=== PATIENT | female | born 1975 | race Caucasian/White ===

== ENCOUNTER 2017-03-12 15:34 | Outpatient (POV) | payer MEDICAID, SELFPAY | END 2017-03-12 16:24 | disposition home or self-care (01) | PROVIDERS: Visit Provider Podiatrist | DX: S93.401A Sprain of unspecified ligament of right ankle, initial encounter (principal); M20.42 Other hammer toe(s) (acquired), left foot; M20.41 Other hammer toe(s) (acquired), right foot | CPT/HCPCS: 99203; 73610; 73630 ==

== ENCOUNTER 2017-04-11 22:54 | Emergency (ER) | payer MEDICAID, SELFPAY ==
[2017-04-11 22:59] VITALS: BP 136/78; PULSE 96; RESP 20; TEMP 37.7; O2SAT 92; BMI 31.0
--- NOTE | 2017-04-11 23:11 | XR_ITS ---
XR chest portable HISTORY: ITS.REASON: COUGH ORDERING PHYSICIAN: Adriel Sargent MD PATIENT AGE: 42 years COMPARISON: 12/31/2016 FINDINGS: Prior median sternotomy with CABG and coronary artery stent placement. Normal heart size. No evidence of CHF.. The lungs are clear without infiltrates, suspicious nodules, or pleural effusions. No acute bony abnormalities. IMPRESSION: Prior CABG, no change with no acute finding
[2017-04-11 23:24] LABS: Basophils % 0.2 % (0.1-2.0); Eosinophils # 0.1 K/mm3 (0.0-0.4); Eosinophils % 0.5 % (0.1-12.0); Hematocrit 38.8 % (37.0-47.0); Hemoglobin 12.8 g/dL (12.2-16.2); Lymphocytes % 8.5 K/mm3 (10-50); Mean Corpuscular Hemoglobin 32.1 pg (27.0-31.2); Mean Corpuscular Volume 97.1 fl (81-99); Mean Platelet Volume 8.4 fl (7.4-10.4); Monocytes # 0.5 K/mm3 (0.1-1.0); Neutrophils # 10.6 K/mm3 (1.8-7.8); Neutrophils % 86.7 % (37.0-80.0); Platelet Count 322 K/mm3 (142-424); Red Cell Distribution Width 13.7 % (11.5-17.5); White Blood Count 12.2 K/mm3 (4.8-10.8)
[2017-04-11 23:26] LABS: MANUAL DIFFERENTIAL MANUAL DIFFERENTIAL (MANUAL DIFF)
[2017-04-11 23:35] VITALS: BP 112/63; PULSE 94; RESP 22; TEMP 38.1; O2SAT 93
[2017-04-11 23:42] LABS: Lactic Acid 1.3 mmol/L (0.4-2.0)
--- NOTE | 2017-04-11 23:47 | PC.NURSE ---
CHEST XRAY PERFORMED AT [facility].
[2017-04-11 23:58] LABS: Alanine Aminotransferase 24 U/L (12-78); Albumin Level 3.7 gm/dL (3.4-5.0); Alkaline Phosphatase 141 U/L (46-116); Amylase 43 U/L (25-125); Anion Gap 12.5 mEq/L (5-15); Aspartate Amino Transferase 19 U/L (15-37); Bilirubin,Total 0.6 mg/dL (0.2-1.0); Blood Urea Nitrogen 9 mg/dL (7-18); Calcium 8.5 mg/dL (8.5-10.1); Carbon Dioxide 27 mmol/L (21.0-32.0); Chloride 101 mmol/L (98-107); Creatine Kinase 59 U/L (26-192); Creatinine Clearance Estimated 98 mL/min (0-300); Creatinine,Serum 1.07 mg/dL (0.55-1.02); Estimated Glomerular Filt Rate 56 ml/min (>60); GFR (African American) 67 ML/MIN (>60); Globulin 3.8 gm/dl (1.3-3.2); Glucose 112 mg/dL (74-106); Lipase 131 u/L (73-393); Potassium 3.5 mmoL/L (3.5-5.1); Sodium 137 mmol/L (136-145); Total Protein,Serum 7.5 gm/dL (6.4-8.2); Troponin I < 0.02 ng/ml (0.00-0.06)
[2017-04-11 23:59] LABS: Strep Scrn Group A (Rapid) Negative (Negative)
[2017-04-12 00:05] LABS: CKMB Relative Index 0.8 U/L (0-4.0); Creatine Kinase MB < 0.5 mg/ml (0.0-3.6)
[2017-04-12 00:16] VITALS: BP 118/64; PULSE 85; RESP 20; TEMP 37.6
--- NOTE | 2017-04-12 00:57 | HMH.EDFEV ---
ED Disposition Clinical Impression: Bronchitis Chronic obstructive lung disease Qualifiers: COPD type: COPD with acute exacerbation Qualified Code(s): J44.1 - Chronic obstructive pulmonary disease with (acute) exacerbation Disposition: Home, Self-Care Condition on Discharge: Good Instructions: DI for Acute Bronchitis Additional Instructions: fluids and use meds and see pcp for follow up Prescriptions: Benzonatate [Tessalon Perle 100mg Cap] 100 mg PO TID #30 cap cephALEXin [Keflex 500mg Cap] 500 mg PO TID #30 cap predniSONE [Prednisone 20mg Tab] 20 mg PO DAILY #10 tab Referrals: Provider,Referral, [Primary Care Provider] - - Critical Care Critical Care Time: No Attestation: On 04/11/17, the high probability of a clinically significant, sudden or life threatening deterioration of the following system(s) required my full and direct attention, intervention and personal management. The time I documented below is in addition to time spent performing reported procedures but includes the following listed in this critical care notation. Medical Decision Making - Medical Records Medical records reviewed: Yes: I reviewed the patient's medical records. Vital Signs: 04/11/17 22:59 04/11/17 23:35 04/12/17 00:16 Temperature 100 F H 100.5 F H 99.6 F Temperature Source Oral Oral Oral Pulse Rate [Right Brachial] 96 H 94 H 85 Respiratory Rate 20 22 20 Blood Pressure [Right Arm] 136/78 112/63 118/64 Blood Pressure Mean [Right Arm] 97 79 82 Blood Pressure Source [Right Arm] Automatic Cuff Automatic Cuff Blood Pressure Position [Right Arm] Supine Supine 02 Sat by Pulse Oximetry 92 L 93 L Oxygen Delivery Method Room Air Nasal Cannula Nasal Cannula Oxygen Flow Rate (LPM) 2 2 - Lab Data Lab results reviewed: Yes: I reviewed the patient's lab results. Lab Results 04/11/17 23:10: WBC 12.2 H, RBC 4.00 L, Hgb 12.8, Hct 38.8, MCV 97.1, MCH 32.1 H, MCHC 33.0, RDW 13.7, Plt Count 322, MPV 8.4, Neut % (Auto) 86.7 H, Lymph % (Auto) 8.5 L, [place] % (Auto) 4.0, Eos % (Auto) 0.5, Baso % (Auto) 0.2, Neut # (Auto) 10.6 H, Lymph # (Auto) 1.0, [place] # (Auto) 0.5, Eos # (Auto) 0.1, Baso # (Auto) 0.0, Total Counted 100, Neutrophils % (Manual) 96 H, Lymphocytes % (Manual) 4 L, Platelet Estimate Normal, Anisocytosis 1+, Ovalocytes 1+ 04/11/17 23:10: Sodium 137, Potassium 3.5, Chloride 101, Carbon Dioxide 27, Anion Gap 12.5, BUN 9, Creatinine 1.07 H, Estimated Creat Clear 98, Estimated GFR 56 L, Est GFR ( Amer) 67, Glucose 112 H, Calcium 8.5, Total Bilirubin 0.6, AST 19, ALT 24, Alkaline Phosphatase 141 H, Total Creatine Kinase 59, CK-MB (CK-2) < 0.5, CK-MB (CK-2) Rel Index 0.8, Troponin I < 0.02, Total Protein 7.5, Albumin 3.7, Globulin 3.8 H, Albumin/Globulin Ratio 1.0 L, Amylase 43, Lipase 131 04/11/17 23:10: Lactic Acid 1.3 04/11/17 23:10: Influenza Type A Ag Negative, Influenza Type B Ag Negative, Group A Strep Rapid Negative Result diagrams: 04/11/17 23:10 04/11/17 23:10 Orders (Tests/Meds): ED MEDICATIONS Discontinued Medications Generic Name Dose Route Start Last Admin Trade Name Freq PRN Reason Stop Dose Admin Sodium Chloride 1,000 mls @ 999 mls/hr 04/11/17 23:15 04/11/17 23:33 Sod Chloride 0.9% 1000ml Bag IV 04/12/17 00:15 999 mls/hr .Q1H1M YANDY Administration Ceftriaxone Sodium 1 gm/ 50 mls @ 100 mls/hr 04/12/17 01:37 04/12/17 01:58 Sodium Chloride IV 04/12/17 02:06 100 mls/hr ONCE ONE Administration Methylprednisolone Sodium Succinate 125 mg 04/12/17 01:37 04/12/17 01:58 Solu-Medrol 125mg/2ml Vial IV 04/12/17 01:38 125 mg ONCE ONE Administration Ondansetron HCl 4 mg 04/11/17 23:10 04/11/17 23:32 Zofran 4mg/2ml Vial IV 04/11/17 23:11 4 mg ONCE ONE Administration ORDERS Category Date Time Status XR chest portable Stat Exams 04/11/17 23:11 Taken Blood Culture Stat Micro 04/11/17 23:10 Received Strep Screen Confirmation Stat Micro 04/11/17 23:10 Rece
[2017-04-12 01:32] LABS: Anisocytosis 1+; Lymphocytes % 4 % (10-50); Neutrophils % 96 % (42-76); Ovalocytes 1+; Platelet Estimate Normal; Total Cells Counted 100
[2017-04-12 02:37] VITALS: BP 122/63; PULSE 84; RESP 22; O2SAT 91
== END 2017-04-12 02:40 | disposition home or self-care (01) ==
PROVIDERS: Emergency Provider Emergency Medicine
DX: J44.1 Chronic obstructive pulmonary disease with (acute) exacerbation (principal); I25.10 Atherosclerotic heart disease of native coronary artery without angina pectoris; E78.5 Hyperlipidemia, unspecified; F17.210 Nicotine dependence, cigarettes, uncomplicated; Z79.899 Other long term (current) drug therapy; I10 Essential (primary) hypertension
CPT/HCPCS: 71045; 80053; 82150; 82550; 82553; 83605; 83690; 84484; 85007; 85025; 87040; 87275; 87276; 87430; 93005; 96365; 96374; 96375; 99285; J2405

== ENCOUNTER 2017-04-14 02:10 | Inpatient (IN) | payer MEDICAID, SELFPAY ==
[2017-04-14] VITALS (8 sets, daily range): BP systolic 100–130; BP diastolic 38–64; PULSE 52–75; RESP 18–28; TEMP 36.1–36.9; O2SAT 84–99; BMI 36.1; BMI 35.8
--- NOTE | 2017-04-14 02:31 | XR_ITS ---
XR chest 2V COMPARISON: Portable upright chest 12/31/2016 HISTORY: Shortness of breath TECHNIQUE: PA and lateral chest FINDINGS: The lung scott are well expanded and appear clear of infiltrate. The cardiac silhouette and vascularity are normal. There is a coronary artery stent noted. There are sternal wire sutures and surgical clips likely from previous bypass procedure. There is no pleural fluid. IMPRESSION: Nonacute chest findings
[2017-04-14 02:35] LABS: ABG Base Excess 3.5 mmol/L (-2.4-2.3); ABG HCO3 29.7 mmhg (22.0-26.0); ABG Oxygen Saturation 91 % (90-100); ABG PH 7.31 mmol/L (7.35-7.45); ABG PO2 67.8 mmhg (80-100); ABG TCO2 31.6 mmhg (23-27)
[2017-04-14 02:36] LABS: Allen's Test Acceptable
[2017-04-14 02:37] LABS: Source R.RAD
[2017-04-14 02:48] LABS: Basophils % 0.2 % (0.1-2.0); Eosinophils % 0.1 % (0.1-12.0); Hematocrit 41.2 % (37.0-47.0); Hemoglobin 12.6 g/dL (12.2-16.2); Lymphocytes # 4.3 K/mm3 (0.7-4.5); Lymphocytes % 22.9 K/mm3 (10-50); Mean Corpuscular HGB Conc 30.5 g/dL (31.8-35.4); Mean Corpuscular Hemoglobin 31.9 pg (27.0-31.2); Mean Corpuscular Volume 104.5 fl (81-99); Mean Platelet Volume 8.5 fl (7.4-10.4); Monocytes # 1.5 K/mm3 (0.1-1.0); Neutrophils % 68.8 % (37.0-80.0); Platelet Count 348 K/mm3 (142-424); Red Blood Count 3.94 M/mm3 (4.20-5.40); Red Cell Distribution Width 13.6 % (11.5-17.5); White Blood Count 18.9 K/mm3 (4.8-10.8)
[2017-04-14 02:55] LABS: MANUAL DIFFERENTIAL MANUAL DIFFERENTIAL (MANUAL DIFF)
[2017-04-14 02:59] LABS: Alanine Aminotransferase 57 U/L (12-78); Albumin Level 3.3 gm/dL (3.4-5.0); Albumin/Globulin Ratio 0.9 (1.1-1.8); Alkaline Phosphatase 206 U/L (46-116); Anion Gap 12.5 mEq/L (5-15); Aspartate Amino Transferase 80 U/L (15-37); Bilirubin,Total 0.2 mg/dL (0.2-1.0); Blood Urea Nitrogen 15 mg/dL (7-18); Calcium 8.5 mg/dL (8.5-10.1); Carbon Dioxide 34 mmol/L (21.0-32.0); Chloride 101 mmol/L (98-107); Creatinine Clearance Estimated 84 mL/min (0-300); Creatinine,Serum 1.25 mg/dL (0.55-1.02); Estimated Glomerular Filt Rate 47 ml/min (>60); GFR (African American) 56 ML/MIN (>60); Globulin 3.8 gm/dl (1.3-3.2); Glucose 150 mg/dL (74-106); Potassium 3.5 mmoL/L (3.5-5.1); Sodium 144 mmol/L (136-145); Total Protein,Serum 7.1 gm/dL (6.4-8.2)
[2017-04-14 03:05] LABS: Eosinophils % 1 % (0-3); Lymphocytes % 15 % (10-50); Monocytes % 5 % (2-9); Neutrophils % 73 % (42-76); Total Cells Counted 100
[2017-04-14 03:06] LABS: Hypochromasia 2+; Macrocytosis 3+; Platelet Estimate Normal
[2017-04-14 03:13] LABS: Lactic Acid 2.4 mmol/L (0.4-2.0)
--- NOTE | 2017-04-14 04:11 | HMH.EDSOB ---
ED Disposition Clinical Impression: Acute exacerbation of chronic obstructive airways disease, Bronchitis Disposition: Admitted As Inpatient Condition on Discharge: Good Referrals: Provider,Referral, [Primary Care Provider] - - Critical Care Critical Care Time: No Attestation: On 04/14/17, the high probability of a clinically significant, sudden or life threatening deterioration of the following system(s) required my full and direct attention, intervention and personal management. The time I documented below is in addition to time spent performing reported procedures but includes the following listed in this critical care notation. Medical Decision Making - Medical Records Medical records reviewed: Yes: I reviewed the patient's medical records. Vital Signs: 04/14/17 02:11 04/14/17 03:54 Temperature 98.3 F Temperature Source Oral Pulse Rate [Right Radial] 75 69 Respiratory Rate 24 20 Blood Pressure [Right Arm] 110/56 120/64 Blood Pressure Mean [Right Arm] 74 82 Blood Pressure Source [Right Arm] Automatic Cuff Automatic Cuff Blood Pressure Position [Right Arm] Sitting Sitting 02 Sat by Pulse Oximetry 84 L 95 Oxygen Delivery Method Room Air Nasal Cannula Oxygen Flow Rate (LPM) 2 - Lab Data Lab results reviewed: Yes: I reviewed the patient's lab results. Lab Results 04/14/17 02:30: Specimen Source R.rad, O2 % 28$, ABG pH 7.31 L, ABG pCO2 60.0 H, ABG pO2 67.8 L, ABG HCO3 29.7 H, ABG Total CO2 31.6 H, ABG O2 Saturation 91, ABG Base Excess 3.5 H, Wesley Test Acceptable 04/14/17 02:30: Troponin I < 0.02 04/14/17 02:30: B-Natriuretic Peptide 372 H 04/14/17 02:40: WBC 18.9 H D, RBC 3.94 L, Hgb 12.6, Hct 41.2, MCV 104.5 H, MCH 31.9 H, MCHC 30.5 L, RDW 13.6, Plt Count 348, MPV 8.5, Neut % (Auto) 68.8, Lymph % (Auto) 22.9, [place] % (Auto) 8.0, Eos % (Auto) 0.1, Baso % (Auto) 0.2, Neut # (Auto) 13.0 H, Lymph # (Auto) 4.3, [place] # (Auto) 1.5 H, Eos # (Auto) 0.0, Baso # (Auto) 0.0, Total Counted 100, Neutrophils % (Manual) 73, Band Neutrophils % 6.0, Lymphocytes % (Manual) 15, Monocytes % (Manual) 5, Eosinophils % (Manual) 1, Platelet Estimate Normal, Hypochromasia 2+, Macrocytosis 3+ 04/14/17 02:40: Sodium 144, Potassium 3.5, Chloride 101, Carbon Dioxide 34 H D, Anion Gap 12.5, BUN 15 D, Creatinine 1.25 H, Estimated Creat Clear 84, Estimated GFR 47 L, Est GFR ( Amer) 56 L, Glucose 150 H, Calcium 8.5, Total Bilirubin 0.2, AST 80 H D, ALT 57 D, Alkaline Phosphatase 206 H, Total Protein 7.1, Albumin 3.3 L, Globulin 3.8 H, Albumin/Globulin Ratio 0.9 L 04/14/17 02:40: Lactic Acid 2.4 H Result diagrams: 04/14/17 02:40 04/14/17 02:40 Orders (Tests/Meds): ED MEDICATIONS Discontinued Medications Generic Name Dose Route Start Last Admin Trade Name Freq PRN Reason Stop Dose Admin Furosemide 40 mg 04/14/17 04:21 04/14/17 04:27 Lasix 40mg/4ml Vial IV 04/14/17 04:22 40 mg ONCE ONE Administration Methylprednisolone Sodium Succinate 125 mg 04/14/17 03:30 04/14/17 03:32 Solu-Medrol 125mg/2ml Vial IV 04/14/17 03:31 125 mg ONCE ONE Administration ORDERS Category Date Time Status XR chest 2V Stat Exams 04/14/17 02:31 Taken Blood Culture Stat Micro 04/14/17 02:40 Received - Radiology Data #1 Image(s): Chest Image Reviewed: Yes I reviewed the patient's radiology image Preliminary Findings: Abnormal (vascular congestion) - Physician Consults Physician Consulted: tess Reason -: Admission - Josh Inquiry Pt receiving controlled substance: No Resp/SOB HPI - General Chief Complaint: Shortness of Breath/Dyspnea Stated Complaint: SOA Time Seen by Provider: 04/14/17 04:11 Mode of Arrival: EMS Source of Information: Patient, Relative, EMS, Medical Record Limitations: No Limitations Description of Symptoms (Recalled from ER Triage Doc. by RN): pt reports difficulty breathing that became worse when she abulated to the restroom. - History of Present Illness pt with
--- NOTE | 2017-04-14 04:15 | ED_ITS ---
ED Disposition Clinical Impression: Acute exacerbation of chronic obstructive airways disease, Bronchitis Disposition: Admitted As Inpatient Condition on Discharge: Good Referrals: Provider,Referral, [Primary Care Provider] - - Critical Care Critical Care Time: No Attestation: On 04/14/17, the high probability of a clinically significant, sudden or life threatening deterioration of the following system(s) required my full and direct attention, intervention and personal management. The time I documented below is in addition to time spent performing reported procedures but includes the following listed in this critical care notation. Medical Decision Making - Medical Records Medical records reviewed: Yes: I reviewed the patient's medical records. Vital Signs: 04/14/17 02:11 04/14/17 03:54 Temperature 98.3 F Temperature Source Oral Pulse Rate [Right Radial] 75 69 Respiratory Rate 24 20 Blood Pressure [Right Arm] 110/56 120/64 Blood Pressure Mean [Right Arm] 74 82 Blood Pressure Source [Right Arm] Automatic Cuff Automatic Cuff Blood Pressure Position [Right Arm] Sitting Sitting 02 Sat by Pulse Oximetry 84 L 95 Oxygen Delivery Method Room Air Nasal Cannula Oxygen Flow Rate (LPM) 2 - Lab Data Lab results reviewed: Yes: I reviewed the patient's lab results. Lab Results 04/14/17 02:30: Specimen Source R.rad, O2 % 28$, ABG pH 7.31 L, ABG pCO2 60.0 H , ABG pO2 67.8 L, ABG HCO3 29.7 H, ABG Total CO2 31.6 H, ABG O2 Saturation 91, ABG Base Excess 3.5 H, Wesley Test Acceptable 04/14/17 02:30: Troponin I < 0.02 04/14/17 02:30: B-Natriuretic Peptide 372 H 04/14/17 02:40: WBC 18.9 H D, RBC 3.94 L, Hgb 12.6, Hct 41.2, MCV 104.5 H, MCH 31.9 H, MCHC 30.5 L, RDW 13.6, Plt Count 348, MPV 8.5, Neut % (Auto) 68.8, Lymph % (Auto) 22.9, [place] % (Auto) 8.0, Eos % (Auto) 0.1, Baso % (Auto) 0.2, Neut # (Auto) 13.0 H, Lymph # (Auto) 4.3, [place] # (Auto) 1.5 H, Eos # (Auto) 0.0 , Baso # (Auto) 0.0, Total Counted 100, Neutrophils % (Manual) 73, Band Neutrophils % 6.0, Lymphocytes % (Manual) 15, Monocytes % (Manual) 5, Eosinophils % (Manual) 1, Platelet Estimate Normal, Hypochromasia 2+, Macrocytosis 3+ 04/14/17 02:40: Sodium 144, Potassium 3.5, Chloride 101, Carbon Dioxide 34 H D, Anion Gap 12.5, BUN 15 D, Creatinine 1.25 H, Estimated Creat Clear 84, Estimated GFR 47 L, Est GFR ( Amer) 56 L, Glucose 150 H, Calcium 8.5, Total Bilirubin 0.2, AST 80 H D, ALT 57 D, Alkaline Phosphatase 206 H, Total Protein 7.1, Albumin 3.3 L, Globulin 3.8 H, Albumin/Globulin Ratio 0.9 L 04/14/17 02:40: Lactic Acid 2.4 H Result diagrams: 04/14/17 02:40 04/14/17 02:40 Orders (Tests/Meds): ED MEDICATIONS Discontinued Medications Generic Name Dose Route Start Last Admin Trade Name Freq PRN Reason Stop Dose Admin Furosemide 40 mg 04/14/17 04:21 04/14/17 04:27 Lasix 40mg/4ml Vial IV 04/14/17 04:22 40 mg ONCE ONE Administration Methylprednisolone Sodium Succinate 125 mg 04/14/17 03:30 04/14/17 03:32 Solu-Medrol 125mg/2ml Vial IV 04/14/17 03:31 125 mg ONCE ONE Administration ORDERS Category Date Time Status XR chest 2V Stat Exams 04/14/17 02:31 Taken Blood Culture Stat Micro 04/14/17 02:40 Received - Radiology Data #1 Image(s): Chest Image Reviewed: Yes I reviewed the patient's radiology image Preliminary Fin
[2017-04-14 04:42] LABS: Troponin I < 0.02 ng/ml (0.00-0.06)
--- NOTE | 2017-04-14 05:46 | PC.NURSE ---
CALLED REPORT TO ELIE
[2017-04-14 06:26] LABS: Reflex Lactic Add Lactic Reflex
--- NOTE | 2017-04-14 07:20 | HMH.HP ---
*Admission Date: 04/14/17 *Chief complaint: Shortness of breath *History of present illness: 42-year-old female with history of COPD and coronary artery disease who continues to smoke cigarettes presented to the emergency department for the second time this week with shortness of breath. Patient was hypoxic on room air with distant breath sounds and wheezes. White blood cell count was elevated 18,000. Decision was made to admit the patient for COPD exacerbation that has failed outpatient treatment. She is also been started on antibiotics to cover pneumonia. Patient admits to worsening shortness of breath over the last 72 hours with fever as high as 103 approximately 3 days ago. [facility] History Medical History: Reports:: Cancer (CERVIACL), Chronic Obstructive Pulmonary Disease (COPD), Coronary Artery Disease, Hyperlipidemia, Hypertension Denies:: Diabetes Mellitus Type 1, Diabetes Mellitus Type 2, MRSA Other Medical History: Reports: Fibromyalgia Other Surgeries: Yes: Appendectomy, Cancer Surgery, Hysterectomy-Total, Other ([facility] 2014 stents, Kidney, Feet, Oral Sx) Amputation: No Fractures: No - *Social History Smoking Status: Current every day smoker Tobacco Type: cigarettes # Packs/Day (cigarettes): 1 Alcohol Intake: never Substance Use Type: denies use Occupational Status: disabled - Psychiatric History Expresses thoughts of harming self/others: None Suicide Plan Description: No Plan *Family Hx:: Coronary Artery Disease, Diabetes, Hypertension Review of Systems - Review of Systems Review of systems:: pertinent systems reviewed and negative unless documented below - *Cardiovascular Denies chest pain, Denies chest pain at rest, Denies chest pain with activity - *Respiratory Reports cough, Reports shortness of breath, Reports shortness of breath with activity, Reports wheezing - *Neurologic Denies tingling/numbness/burning sensations, Denies seizure-like activity Meds Home Medications Medication Instructions Recorded Confirmed Type aspirin 81 mg tablet,delayed 81 mg PO QDAY 04/05/17 04/14/17 History release atorvastatin 80 mg tablet 80 mg PO QDAY 04/05/17 04/14/17 History clonazepam 1 mg tablet 1 mg PO BID tab 04/05/17 04/14/17 History fluticasone 50 mcg/actuation nasal 2 spray INTRANASAL QDAY 04/05/17 04/14/17 History spray,suspension gabapentin 800 mg tablet 800 mg PO TID 04/05/17 04/14/17 History isosorbide mononitrate ER 60 mg 60 mg PO QAM 04/05/17 04/14/17 History tablet,extended release 24 hr minocycline 100 mg capsule 100 mg PO Q12H 04/05/17 04/14/17 History mometasone-formoterol HFA 100 2 puff INHALATION TID g 04/05/17 04/14/17 History mcg-5 mcg/actuation aerosol inhaler montelukast 10 mg tablet 10 mg PO QHS 04/05/17 04/14/17 History nitroglycerin 0.4 mg sublingual 0.4 mg SUBLINGUAL Q5M PRN 04/05/17 04/14/17 History tablet omeprazole magnesium 20 mg 20 mg PO QDAY tab 04/05/17 04/14/17 History tablet,delayed release paroxetine 40 mg tablet 40 mg PO QDAY 04/05/17 04/14/17 History ticagrelor 90 mg tablet 90 mg PO BID 04/05/17 04/14/17 History tiotropium bromide 2.5 2 puff INHALATION QDAY 04/05/17 04/14/17 History mcg/actuation mist for inhalation trazodone 100 mg tablet 50 mg PO QHS 04/05/17 04/14/17 History furosemide 20 mg tablet 20 mg PO QDAY 04/09/17 04/14/17 History Benzonatate [Tessalon Perle 100mg 100 mg PO TID 04/14/17 04/14/17 History Cap] Bisoprolol Fumarate 10 mg PO BID 04/14/17 04/14/17 History cephALEXin [Keflex 500mg Cap] 500 mg PO TID 04/14/17 04/14/17 History predniSONE [Prednisone 20mg 20 mg PO DAILY 04/14/17 04/14/17 History Tab] Allergies Allergy/AdvReac Type Severity Reaction Status Date / Time Sulfa (Sulfonamide Allergy Unknown Verified 04/09/17 14:24 Antibiotics) [SULFA (SULFONAMIDE ANTIBIOTICS)] Exam Vital signs and Labs for Last 24 Hours: Temp Pulse Resp BP Pulse Ox 98.3 F 75 20 104/52 99 04/14/17 06:48
--- NOTE | 2017-04-14 07:23 | P.HP_ITS ---
*Admission Date: 04/14/17 *Chief complaint: Shortness of breath *History of present illness: 42-year-old female with history of COPD and coronary artery disease who continues to smoke cigarettes presented to the emergency department for the second time this week with shortness of breath. Patient was hypoxic on room air with distant breath sounds and wheezes. White blood cell count was elevated 18,000. Decision was made to admit the patient for COPD exacerbation that has failed outpatient treatment. She is also been started on antibiotics to cover pneumonia. Patient admits to worsening shortness of breath over the last 72 hours with fever as high as 103 approximately 3 days ago. [facility] [place] History Medical History: Reports:: Cancer (CERVIACL), Chronic Obstructive Pulmonary Disease (COPD), Coronary Artery Disease, Hyperlipidemia, Hypertension Denies:: Diabetes Mellitus Type 1, Diabetes Mellitus Type 2, MRSA Other Medical History: Reports: Fibromyalgia Other Surgeries: Yes: Appendectomy, Cancer Surgery, Hysterectomy-Total, Other ( [facility] 2014 stents, Kidney, Feet, Oral Sx) Amputation: No Fractures: No - *Social History Smoking Status: Current every day smoker Tobacco Type: cigarettes # Packs/Day (cigarettes): 1 Alcohol Intake: never Substance Use Type: denies use Occupational Status: disabled - Psychiatric History Expresses thoughts of harming self/others: None Suicide Plan Description: No Plan *Family Hx:: Coronary Artery Disease, Diabetes, Hypertension Review of Systems - Review of Systems Review of systems:: pertinent systems reviewed and negative unless documented below - *Cardiovascular Denies chest pain, Denies chest pain at rest, Denies chest pain with activity - *Respiratory Reports cough, Reports shortness of breath, Reports shortness of breath with activity, Reports wheezing - *Neurologic Denies tingling/numbness/burning sensations, Denies seizure-like activity Meds Home Medications Medication Instructions Recorded Confirmed Type aspirin 81 mg tablet,delayed 81 mg PO QDAY 04/05/17 04/14/17 History release atorvastatin 80 mg tablet 80 mg PO QDAY 04/05/17 04/14/17 History clonazepam 1 mg tablet 1 mg PO BID tab 04/05/17 04/14/17 History fluticasone 50 mcg/actuation nasal 2 spray INTRANASAL QDAY 04/05/17 04/14/17 History spray,suspension gabapentin 800 mg tablet 800 mg PO TID 04/05/17 04/14/17 History isosorbide mononitrate ER 60 mg 60 mg PO QAM 04/05/17 04/14/17 History tablet,extended release 24 hr minocycline 100 mg capsule 100 mg PO Q12H 04/05/17 04/14/17 History mometasone-formoterol HFA 100 2 puff INHALATION TID g 04/05/17 04/14/17 History mcg-5 mcg/actuation aerosol inhaler montelukast 10 mg tablet 10 mg PO QHS 04/05/17 04/14/17 History nitroglycerin 0.4 mg sublingual 0.4 mg SUBLINGUAL Q5M PRN 04/05/17 04/14/17 History tablet omeprazole magnesium 20 mg 20 mg PO QDAY tab 04/05/17 04/14/17 History tablet,delayed release paroxetine 40 mg tablet 40 mg PO QDAY 04/05/17 04/14/17 History ticagrelor 90 mg tablet 90 mg PO BID 04/05/17 04/14/17 History tiotropium bromide 2.5 2 puff INHALATION QDAY 04/05/17 04/14/17 History mcg/actuation mist for inhalation trazodone 100 mg tablet 50 mg PO QHS 04/05/17 04/14/17 History furosemide 20 mg tablet 20 mg PO QDAY 04/09/17 04/14/17 History Benzonatate [Tessalon Perle 100mg 100 mg PO TID 04/14/17 04/14/17 History Cap] Bisoprolol Fumarate 10 mg PO BID 04/01
[2017-04-14 07:39] LABS: Lactic Acid Follow Up (RFLX 1) 2.3 (0.4-2.0)
[2017-04-14 09:09] LABS: Reflex Lactic (2 hrs) Add Lactic Reflex
[2017-04-14 10:03] LABS: Lactic Acid Follow up (RFLX 2) 1.1 (0.4-2.0)
[2017-04-14 12:59] LABS: Adenovirus,PCR Not Detected (NotDetected); Bordetella Pertussis Not Detected (NotDetected); Chlamydophila Pneumoniae, PCR Not Detected (NotDetected); Coronavirus 229E Not Detected (NotDetected); Coronavirus NL63 Not Detected (NotDetected); Coronavirus OC43 Not Detected (NotDetected); Coronovirus HKU1,PCR Not Detected (NotDetected); Human Metapneumovirus Not Detected (NotDetected); Influenza A, PCR Not Detected (NotDetected); Influenza AH1, 2009 Not Detected (NotDetected); Influenza AH1, PCR Not Detected (NotDetected); Influenza B, PCR Not Detected (NotDetected); Mycoplasma Pneumoniae, PCR Not Detected (NotDected); Parainfluenza 1, PCR Not Detected (NotDetected); Parainfluenza 2, PCR Not Detected (NotDetected); Parainfluenza 3, PCR Not Detected (NotDetected); Parainfluenza 4, PCR Not Detected (NotDetected); Respiratory Syncytial Virus Not Detected (NotDetected); Rhinovirus/Enterovirus Not Detected (NotDetected)
[2017-04-14 14:27] LABS: Influenza AH3,PCR Detected (NotDetected)
--- NOTE | 2017-04-14 16:22 | P.CONPHA_ITS ---
[facility] Pharmacy VTE Monitoring - Patient Demographics Admission date: 04/14/17 Report Date: 04/14/17 Time: 16:22 Allergies/Adverse Reactions: Sulfa (Sulfonamide Antibiotics) [SULFA (SULFONAMIDE ANTIBIOTICS)] Allergy ( Unknown, Verified 04/09/17 14:24) Height: 1.6 m Weight: 91.739 kg Patient Problems: Current Active Problems Bronchitis (Acute) Acute exacerbation of chronic obstructive airways disease (Acute) - VTE Risk Labs: VTE Related Lab Results Hgb 12.6 g/dL (12.2-16.2) 04/14/17 02:40 Hct 41.2 % (37.0-47.0) 04/14/17 02:40 Plt Count 348 K/mm3 (142-424) 04/14/17 02:40 BUN 15 mg/dL (7-18) D 04/14/17 02:40 Creatinine 1.25 mg/dL (0.55-1.02) H 04/14/17 02:40 Estimated Creat Clear 84 mL/min (0-300) 04/14/17 02:40 Was VTE Risk Assessment Performed: Yes VTE Score: 4 VTE Risk Level: Low Risk - Prophylaxis VTE Prophylaxis Ordered?: Yes Types of VTE Prophylaxis: TEDS Knee High Location of Applied Device: Bilateral Lower Extremeties
--- NOTE | 2017-04-14 17:02 | PC.NURSE ---
PATIENT HAS BEEN RESTING IN BED ALL DAY, BUT STATES SHE FEELS MUCH BETTER THAN SHE DID LAST NIGHT WHEN SHE CAME TO THE ER. HER BREATHING IS NOT LABORED IT WAS THIS MORNING. LUNG SOUNDS ARE RHONCHI ON INSPIRATION AND DIMINISHED T/O. BLOOD PRESSURE WAS LOW THIS AFTERNOON AFTER GIVEN MEDS. PATIENT DENIES ANY PAIN OR NEEDS AT THIS TIME. WILL CONTINUE TO MONITOR.
[2017-04-15] VITALS (9 sets, daily range): BP systolic 97–128; BP diastolic 51–68; PULSE 50–88; RESP 16–20; TEMP 36.4–37.1; O2SAT 83–96
[2017-04-15 04:18] LABS: Basophils % 0.1 % (0.1-2.0); Eosinophils % 0.2 % (0.1-12.0); Hematocrit 36.8 % (37.0-47.0); Hemoglobin 11.5 g/dL (12.2-16.2); Lymphocytes % 12.8 K/mm3 (10-50); Mean Corpuscular HGB Conc 31.2 g/dL (31.8-35.4); Mean Corpuscular Hemoglobin 31.7 pg (27.0-31.2); Mean Corpuscular Volume 101.4 fl (81-99); Mean Platelet Volume 8.3 fl (7.4-10.4); Monocytes # 0.4 K/mm3 (0.1-1.0); Monocytes % 4.7 % (1.7-9.3); Neutrophils # 6.3 K/mm3 (1.8-7.8); Neutrophils % 82.1 % (37.0-80.0); Platelet Count 284 K/mm3 (142-424); Red Blood Count 3.63 M/mm3 (4.20-5.40); Red Cell Distribution Width 13.6 % (11.5-17.5); White Blood Count 7.7 K/mm3 (4.8-10.8)
--- NOTE | 2017-04-15 05:34 | PC.NURSE ---
PATIENT SEEMS TO HAVE SLEPT WELL FOR MOST OF THE SHIFT. SHE C/O HEADACHE AT HS AND RECEIVED PRN TYLENOL, WHICH HELPED. PATIENT DID AWAKEN AROUND 0430 WITH SOA. OXYGEN SATURATION AT THAT TIME WAS 93% ON 3 LPM NC WITH SCATTERED EXPIRATORY WHEEZING NOTED TO BILATERAL LUNG ANDERSON. PRN NEB TREATMENT GIVEN AT THAT TIME, WITH PATIENT'S BREATHING IMPROVING AFTERWARD. PATIENT RESTING IN BED AT THIS TIME. NO OTHER PROBLEMS NOTED. VSS. WILL CONTINUE TO MONITOR. SAFETY MEASURES IN PLACE
--- NOTE | 2017-04-15 08:34 | HMH.ACPN ---
Internal Medicine - PN: Subj *Date: 04/15/17 *Time: 08:34 Interval history: Overall patient feels somewhat better. Continues to have shortness of air and is very concerned about her requiring oxygen at home. O2 saturations have been very acceptable on 2 L and on room air. Exam Vital signs and Labs for Last 24 Hours: Temp Pulse Resp BP Pulse Ox 97.9 F 88 20 97/51 95 04/15/17 05:17 04/15/17 05:53 04/15/17 05:17 04/15/17 05:17 04/15/17 05:53 Laboratory Results - last 24 hr 04/14/17 09:35: Lactic Acid Fup @ 2Hr 1.1 04/14/17 12:55: Chlamy pneumoniae PCR Not detected, Adenovirus (PCR) Not detected, B.parapertussis DNA PCR Not detected, Coronavirus OC43 (PCR) Not detected, Coronavirus HKU1 (PCR) Not detected, Coronavirus 229E (PCR) Not detected, Coronavirus NL63 (PCR) Not detected, Human Metapneumovir PCR Not detected, Influenza A (H1) PCR Not detected, Influ A (H1N1/09) PCR Not detected, Influenza A (H3) PCR Detected A, Influenza Type A (PCR) Not detected, Influenza Type B (PCR) Not detected, M. pneumoniae (PCR) Not detected, Parainfluenza 1 (PCR) Not detected, Parainfluenza 2 (PCR) Not detected, Parainfluenza 3 (PCR) Not detected, Parainfluenza 4 (PCR) Not detected, RSV (PCR) Not detected, Entero/Rhino (PCR) Not detected 04/15/17 04:05: WBC 7.7 D, RBC 3.63 L, Hgb 11.5 L, Hct 36.8 L, MCV 101.4 H, MCH 31.7 H, MCHC 31.2 L, RDW 13.6, Plt Count 284, MPV 8.3, Neut % (Auto) 82.1 H, Lymph % (Auto) 12.8, [place] % (Auto) 4.7, Eos % (Auto) 0.2, Baso % (Auto) 0.1, Neut # (Auto) 6.3, Lymph # (Auto) 1.0, [place] # (Auto) 0.4, Eos # (Auto) 0.0, Baso # (Auto) 0.0 I & O for Last 24 hours: Intake & Output 04/12/17 04/13/17 04/14/17 04/15/17 11:59 11:59 11:59 11:59 Intake Total 2252 / 225 Balance 225 / 225 Weight 202 lb 4 oz 202 lb 4 oz Narrative: Patient is alert. Pleasant. Minimal wheezing when she takes a deep breath in both bases but no crackles or rhonchi. Some shortness of air with talking but this seems to be subjective. Heart rate regular, abdomen is soft. Assessment and Plan (1) Acute exacerbation of chronic obstructive airways disease Current visit: Yes Status: Acute Category: Medical Code(s): J44.1 - Chronic obstructive pulmonary disease with (acute) exacerbation (2) Bronchitis Current visit: Yes Status: Acute Category: Medical Code(s): J40 - Bronchitis, not specified as acute or chronic - Assessment and plan all Dx Assessment and Plan for all problems:: Overall patient is improved. Room air O2 saturations today. I anticipate discharge tomorrow.
--- NOTE | 2017-04-15 10:39 | CARE MANAGER ---
MS SCHRADER WAS ADMITTIED WITH EXACERBATION OF COPD AND HAS TURNED POSITIVE FOR THE INFLUENZA A. SHE IS BEING TREATED WITH STEROIDS,ANTIBIOTICS ANTI VIRALS,OXYGEN AND NEBS. IF ALL GOES WELL SHE WILL DISCHARGE TO HOME IN AM WITH [employer] INSTRUCTIONS.
--- NOTE | 2017-04-15 11:27 | PC.NURSE ---
1115 PATIENT STATING 83-88% ON ROOM AIR, REAPPLIED 3L O2. WILL CONTINUE TO MONITOR.
[2017-04-16] VITALS (9 sets, daily range): BP systolic 101–138; BP diastolic 45–74; PULSE 49–64; RESP 18–21; TEMP 36.1–37.1; O2SAT 87–97
--- NOTE | 2017-04-16 03:41 | PC.NURSE ---
SITTING UP IN BED WATCHING TV. STATES WAS HAVING SOME CHEST DISCOMFORT RELATED TO GERD. WAS BELCHING. STATES HAS EASED OFF SINCE SITTING UP. HAS [address] PER NC AT 3L. HAS SLEPT INTERMITTENTLY THROUGH OUT THE SHIFT. LUNGS HAVE RHONCHI BILAT, ALSO DIMINISHED. GOT UP TO [facility] WITHOUT DIFFICULTY. IV IS PATENT, TUBING LABELED. [facility] HAS NO NEEDS AT THIS TIME. BED LOCKED IN LOW POSITION, SIDE RALES UP X 2. CALL LIGHT WITHIN REACH. WILL CONTINUE TO MONITOR.
--- NOTE | 2017-04-16 07:35 | PC.NURSE ---
REPORT GIVEN TO Elliot BROWNING
--- NOTE | 2017-04-16 07:55 | HMH.ACPN ---
Internal Medicine - PN: Subj *Date: 04/16/17 *Time: 07:55 Interval history: Patient continues to have coughing and shortness of air especially without oxygen. Room air oxygen saturation after 5 minutes off O2 is 87%. Exam Vital signs and Labs for Last 24 Hours: Temp Pulse Resp BP Pulse Ox 97.5 F L 50 L 20 121/53 95 04/16/17 04:00 04/16/17 06:05 04/16/17 04:00 04/16/17 04:00 04/16/17 06:05 I & O for Last 24 hours: Intake & Output 04/13/17 04/14/17 04/15/17 04/16/17 11:59 11:59 11:59 11:59 Intake Total 2732 / 2732 3871 / 3871 Balance 2732 / 2732 3871 / 3871 Weight 202 lb 4 oz 202 lb 4 oz 203 lb 1 oz Narrative: Patient has rhonchi in her chest, symmetric air entry, some splinting pain with a deep breath. Heart rate regular, alert, oriented ?3. Assessment and Plan (1) Acute exacerbation of chronic obstructive airways disease Current visit: Yes Status: Acute Category: Medical Code(s): J44.1 - Chronic obstructive pulmonary disease with (acute) exacerbation (2) Bronchitis Current visit: Yes Status: Acute Category: Medical Code(s): J40 - Bronchitis, not specified as acute or chronic - Assessment and plan all Dx Assessment and Plan for all problems:: Given her significant dyspnea we will check CT scan with PE protocol to evaluate lung parenchyma.
[2017-04-16 08:04] LABS: Basophils % 0.1 % (0.1-2.0); Eosinophils % 0.2 % (0.1-12.0); Hematocrit 40.4 % (37.0-47.0); Hemoglobin 12.6 g/dL (12.2-16.2); Lymphocytes # 1.2 K/mm3 (0.7-4.5); Lymphocytes % 7.6 K/mm3 (10-50); Mean Corpuscular HGB Conc 31.2 g/dL (31.8-35.4); Mean Corpuscular Hemoglobin 31.9 pg (27.0-31.2); Mean Corpuscular Volume 102.2 fl (81-99); Mean Platelet Volume 8.6 fl (7.4-10.4); Monocytes # 0.8 K/mm3 (0.1-1.0); Monocytes % 4.9 % (1.7-9.3); Neutrophils # 13.6 K/mm3 (1.8-7.8); Neutrophils % 87.2 % (37.0-80.0); Platelet Count 355 K/mm3 (142-424); Red Blood Count 3.95 M/mm3 (4.20-5.40); Red Cell Distribution Width 13.6 % (11.5-17.5); White Blood Count 15.6 K/mm3 (4.8-10.8)
[2017-04-16 08:19] LABS: Anion Gap 7.9 mEq/L (5-15); Blood Urea Nitrogen 19 mg/dL (7-18); Carbon Dioxide 38 mmol/L (21.0-32.0); Chloride 100 mmol/L (98-107); Creatinine Clearance Estimated 116 mL/min (0-300); Estimated Glomerular Filt Rate 68 ml/min (>60); GFR (African American) 82 ML/MIN (>60); Glucose 125 mg/dL (74-106); Potassium 3.9 mmoL/L (3.5-5.1); Sodium 142 mmol/L (136-145)
[2017-04-16 08:42] LABS: MANUAL DIFFERENTIAL MANUAL DIFFERENTIAL (MANUAL DIFF)
--- NOTE | 2017-04-16 09:44 | CT_ITS ---
CT angio chest HISTORY: Shortness of breath with chest pain ITS.REASON: DYSPNEA ORDERING PHYSICIAN: Lucio Dominguez MD PATIENT AGE: 42 years TECHNIQUE: Axial images obtained following the administration of 75 mL of Isovue 370 . Sagittal, and coronal reformatted images are also generated and reviewed. COMPARISON: None FINDINGS: There is been a prior median sternotomy with CABG. No evidence of pulmonary embolus, aortic aneurysm, or dissection. Normal heart size without evidence of pericardial thickening. No mediastinal or hilar mass. Mild biapical fibrotic changes are noted with pleural thickening. There is patchy groundglass density in the upper lobes somewhat more extensive on the left. There are centrilobular emphysematous changes. Patchy infiltrate is present within the lingula. Scattered patchy airspace disease also present in the left lower lobe anteriorly. There is mild bronchial thickening. No effusions. IMPRESSION: 1. Patchy groundglass density in both apices, lingula, and left lower lobe consistent with pneumonitis 2. No evidence of pulmonary embolus or aortic aneurysm.
[2017-04-16 10:54] LABS: Lymphocytes % 7 % (10-50); Monocytes % 6 % (2-9); Neutrophils % 84 % (42-76); Platelet Estimate Normal; Total Cells Counted 100
--- NOTE | 2017-04-16 17:06 | PC.NURSE ---
pt has had no complaints this shift. scattered rhochi and wheezes throughout noted on auscultation. bowel sounds normal, heart sounds normal. [place] [facility] [place]ness of air with exertion. room air sat obtained this morning and was 87% after 5 minutes. md was at bedside at this time and is aware. call light in reach. nonskids on. bed in lowest position. will continue to monitor pt condition.
--- NOTE | 2017-04-16 18:54 | PC.NURSE ---
report to be given to kathryn flores rn
--- NOTE | 2017-04-16 19:15 | PC.NURSE ---
REPORT RECEIVED FROM ROCHELLE
[2017-04-17 02:31] VITALS: O2SAT 90
--- NOTE | 2017-04-17 04:21 | PC.NURSE ---
SITTING UP ON SIDE OF BED, C/O SOA. OXYGEN CURRENTLY 2LNC. SAT OBTAINED, 84. INCREASED OXYGEN TO 3L. BREATH SOUNDS VERY TIGHT, DIMINISHED. REASSESSED O2 SAT, 87. OXYGEN TO 3.5L, CALLED RESPIRATORY FOR PRN NEB TX. REMINDED PT IMPORTANCE OF BREATHING IN DEEP BREATH THROUGH NOSE AND OUT THROUGH MOUTH. PT WAS THEN TAKING DEEP BREATHS, BUT BARELY EXHALING. EXPLAINED THAT IT'S VERY IMPORTANT TO EXHALE WHEN YOU HAVE COPD. JUST KEPT CALMLY REMINDING HER IN THROUGH THE NOSE AND OUT THROUGH THE MOUTH. TOLD PT TO REMEMBER IT'S LIKE SMELL THE ROSES AND BLOW OUT THE CANDLES. JUST ARRIVING. OXYGEN SAT 91%. AWAITING RESPIRATORY THERAPY. WILL CONTINUE TO MONITOR.
[2017-04-17 04:30] VITALS: BP 125/57; PULSE 80; RESP 18; TEMP 36.5; O2SAT 92
--- NOTE | 2017-04-17 04:45 | PC.NURSE ---
AFTER NEB TX COMPLETED. AIR EXCHANGED IMPROVED, SATS 97%. WILL KEEP AT 3.5L FOR NOW, WEANING SLOWLY TOLERATED.
--- NOTE | 2017-04-17 05:44 | PC.NURSE ---
PT SLEPT LONG INTERVALS. C/O ROMERO BEGINNING OF SHIFT. NO FURTHER C/O PAIN OR DISCOMFORT REPORTED. IV SECURE AND PATENT. CURRENTLY ON 3LNC. RESPIRATIONS EVEN AND UNLABORED AT THIS TIME. SAT 95. BREATH SOUNDS DIMINISHED THROUGHOUT. PT STATES GUMS AND TONGUE SORE. REQUESTS PASS THIS TO DAY SHIFT. PT STATES WHEN SHE IS ON ABX SOMETIMES THIS HAPPENS AND SHE NEEDS NYSTATIN. ALSO, IF PT IS DISCHARGED HOME TODAY, SHE NEEDS REFILL ON HER INHALERS. PT HAS AM LABS ORDERED. PT STABLE. WILL CONTINUE TO MONITOR. REPORT TO BE GIVEN TO ONCOMING NURSE.
[2017-04-17 05:55] VITALS: PULSE 58; PULSE 61; O2SAT 93
[2017-04-17 07:02] LABS: Basophils % 0.1 % (0.1-2.0); Eosinophils % 0.2 % (0.1-12.0); Hematocrit 36.7 % (37.0-47.0); Hemoglobin 11.4 g/dL (12.2-16.2); Lymphocytes # 0.8 K/mm3 (0.7-4.5); Lymphocytes % 5.8 K/mm3 (10-50); Mean Corpuscular HGB Conc 31.1 g/dL (31.8-35.4); Mean Corpuscular Hemoglobin 31.9 pg (27.0-31.2); Mean Corpuscular Volume 102.3 fl (81-99); Mean Platelet Volume 8.6 fl (7.4-10.4); Monocytes # 0.3 K/mm3 (0.1-1.0); Monocytes % 2.4 % (1.7-9.3); Neutrophils # 12.7 K/mm3 (1.8-7.8); Neutrophils % 91.5 % (37.0-80.0); Platelet Count 322 K/mm3 (142-424); Red Blood Count 3.59 M/mm3 (4.20-5.40); Red Cell Distribution Width 13.7 % (11.5-17.5); White Blood Count 13.8 K/mm3 (4.8-10.8)
[2017-04-17 07:16] LABS: Anion Gap 8.6 mEq/L (5-15); Blood Urea Nitrogen 22 mg/dL (7-18); Carbon Dioxide 34 mmol/L (21.0-32.0); Chloride 100 mmol/L (98-107); Creatinine Clearance Estimated 125 mL/min (0-300); Creatinine,Serum 0.87 mg/dL (0.55-1.02); Estimated Glomerular Filt Rate 71 ml/min (>60); GFR (African American) 86 ML/MIN (>60); Glucose 214 mg/dL (74-106); MANUAL DIFFERENTIAL MANUAL DIFFERENTIAL (MANUAL DIFF); Potassium 3.6 mmoL/L (3.5-5.1); Sodium 139 mmol/L (136-145)
--- NOTE | 2017-04-17 07:29 | PC.NURSE ---
REPORT GIVEN TO Kameron CROCKER W/C
[2017-04-17 08:13] LABS: Lymphocytes % 2 % (10-50); Monocytes % 3 % (2-9); Neutrophils % 91 % (42-76); Total Cells Counted 100
[2017-04-17 08:15] LABS: Macrocytosis 1+; Platelet Estimate Normal
[2017-04-17 08:39] VITALS: BP 131/71; PULSE 57; RESP 20; TEMP 36.7; O2SAT 94
--- NOTE | 2017-04-17 08:43 | HMH.DCSUM ---
General - General Admission date: 04/14/17 Discharge date: 04/17/17 HPI HPI: 42-year-old female with history of COPD and coronary artery disease who continues to smoke cigarettes presented to the emergency department for the second time this week with shortness of breath. Patient was hypoxic on room air with distant breath sounds and wheezes. White blood cell count was elevated 18,000. Decision was made to admit the patient for COPD exacerbation that has failed outpatient treatment. She is also been started on antibiotics to cover pneumonia. Patient admits to worsening shortness of breath over the last 72 hours with fever as high as 103 approximately 3 days ago. Objective Vital signs: Temp Pulse Resp BP Pulse Ox 98.1 F 57 L 20 131/71 94 L 04/17/17 08:39 04/17/17 08:39 04/17/17 08:39 04/17/17 08:39 04/17/17 08:39 Narrative: This morning patient is alert, pleasant, talkative, minimally dyspneic with activities. Wearing oxygen. Room air oxygen saturations 87%. Oropharynx is minimal thrush on the anterior right buccal mucosa. Lungs have rhonchi but much better air entry. Heart rate regular. Abdomen soft and nontender. Patient appears well-hydrated. Hospital Course Hospital Course: Patient was admitted to hospital. Placed on broad-spectrum IV antibiotics. Serologic testing revealed the presence of influenza A and she was begun on Tamiflu therapy. This was continued. Patient continued to have an oxygen requirement throughout her stay, with O2 saturations of 87% on room air. This morning however, she is improved. Please see exam notes. She will be discharged home with short-term follow-up. Antibiotics and antivirals as noted. She will be placed on nystatin for minimal oral thrush and a prednisone dose. Results Labs on day of discharge: Labs from last 24 hours 04/17/17 04/17/17 04/16/17 06:30 06:30 07:00 WBC 13.8 H RBC 3.59 L Hgb 11.4 L Hct 36.7 L MCV 102.3 H MCH 31.9 H MCHC 31.1 L RDW 13.7 Plt Count 322 MPV 8.6 Neut % (Auto) 91.5 H Lymph % (Auto) 5.8 L [place] % (Auto) 2.4 Eos % (Auto) 0.2 Baso % (Auto) 0.1 Neut # (Auto) 12.7 H Lymph # (Auto) 0.8 [place] # (Auto) 0.3 Eos # (Auto) 0.0 Baso # (Auto) 0.0 Total Counted 100 100 Neutrophils % (Manual) 91 H 84 H Band Neutrophils % 4.0 3.0 Lymphocytes % (Manual) 2 L 7 L Monocytes % (Manual) 3 6 Platelet Estimate Normal Normal Macrocytosis 1+ Sodium 139 Potassium 3.6 Chloride 100 Carbon Dioxide 34 H Anion Gap 8.6 BUN 22 H Creatinine 0.87 Estimated Creat Clear 125 Estimated GFR 71 Est GFR ( Amer) 86 Glucose 214 H D DS: Diagnosis - Discharge Diagnosis (1) Acute exacerbation of chronic obstructive airways disease Status: Acute (2) Bronchitis Status: Acute (3) Influenza A Status: Acute Meds Home Medications Medication Instructions Recorded Confirmed Type aspirin 81 mg tablet,delayed 81 mg PO QDAY 04/05/17 04/14/17 History release atorvastatin 80 mg tablet 80 mg PO QDAY 04/05/17 04/14/17 History clonazepam 1 mg tablet 1 mg PO BID tab 04/05/17 04/14/17 History fluticasone 50 mcg/actuation nasal 2 spray INTRANASAL QDAY 04/05/17 04/14/17 History spray,suspension gabapentin 800 mg tablet 800 mg PO TID 04/05/17 04/14/17 History isosorbide mononitrate ER 60 mg 60 mg PO QAM 04/05/17 04/14/17 History tablet,extended release 24 hr mometasone-formoterol HFA 100 2 puff INHALATION TID g 04/05/17 04/14/17 History mcg-5 mcg/actuation aerosol inhaler montelukast 10 mg tablet 10 mg PO QHS 04/05/17 04/14/17 History nitroglycerin 0.4 mg sublingual 0.4 mg SUBLINGUAL Q5M PRN 04/05/17 04/14/17 History tablet omeprazole magnesium 20 mg 40 mg PO QDAY tab 04/05/17 04/14/17 History tablet,delayed release paroxetine 40 mg tablet 40 mg PO QDAY 04/05/17 04/14/17 History ticagr
--- NOTE | 2017-04-17 08:47 | P.DS_ITS ---
General - General Admission date: 04/14/17 Discharge date: 04/17/17 HPI HPI: 42-year-old female with history of COPD and coronary artery disease who continues to smoke cigarettes presented to the emergency department for the second time this week with shortness of breath. Patient was hypoxic on room air with distant breath sounds and wheezes. White blood cell count was elevated 18,000. Decision was made to admit the patient for COPD exacerbation that has failed outpatient treatment. She is also been started on antibiotics to cover pneumonia. Patient admits to worsening shortness of breath over the last 72 hours with fever as high as 103 approximately 3 days ago. Objective Vital signs: Temp Pulse Resp BP Pulse Ox 98.1 F 57 L 20 131/71 94 L 04/17/17 08:39 04/17/17 08:39 04/17/17 08:39 04/17/17 08:39 04/17/17 08:39 Narrative: This morning patient is alert, pleasant, talkative, minimally dyspneic with activities. Wearing oxygen. Room air oxygen saturations 87%. Oropharynx is minimal thrush on the anterior right buccal mucosa. Lungs have rhonchi but much better air entry. Heart rate regular. Abdomen soft and nontender. Patient appears well-hydrated. Hospital Course Hospital Course: Patient was admitted to hospital. Placed on broad-spectrum IV antibiotics. Serologic testing revealed the presence of influenza A and she was begun on Tamiflu therapy. This was continued. Patient continued to have an oxygen requirement throughout her stay, with O2 saturations of 87% on room air. This morning however, she is improved. Please see exam notes. She will be discharged home with short-term follow-up. Antibiotics and antivirals as noted. She will be placed on nystatin for minimal oral thrush and a prednisone dose. Results Labs on day of discharge: Labs from last 24 hours 04/17/17 04/17/17 04/16/17 06:30 06:30 07:00 WBC 13.8 H RBC 3.59 L Hgb 11.4 L Hct 36.7 L MCV 102.3 H MCH 31.9 H MCHC 31.1 L RDW 13.7 Plt Count 322 MPV 8.6 Neut % (Auto) 91.5 H Lymph % (Auto) 5.8 L [place] % (Auto) 2.4 Eos % (Auto) 0.2 Baso % (Auto) 0.1 Neut # (Auto) 12.7 H Lymph # (Auto) 0.8 [place] # (Auto) 0.3 Eos # (Auto) 0.0 Baso # (Auto) 0.0 Total Counted 100 100 Neutrophils % (Manual) 91 H 84 H Band Neutrophils % 4.0 3.0 Lymphocytes % (Manual) 2 L 7 L Monocytes % (Manual) 3 6 Platelet Estimate Normal Normal Macrocytosis 1+ Sodium 139 Potassium 3.6 Chloride 100 Carbon Dioxide 34 H Anion Gap 8.6 BUN 22 H Creatinine 0.87 Estimated Creat Clear 125 Estimated GFR 71 Est GFR ( Amer) 86 Glucose 214 H D DS: Diagnosis - Discharge Diagnosis (1) Acute exacerbation of chronic obstructive airways disease Status: Acute (2) Bronchitis Status: Acute (3) Influenza A Status: Acute Meds Home Medications Medication Instructions Recorded Confirmed Type aspirin 81 mg tablet,delayed 81 mg PO QDAY 04/05/17 04/14/17 History release atorvastatin 80 mg tablet 80 mg PO QDAY
[2017-04-17 09:44] VITALS: PULSE 68
--- NOTE | 2017-04-17 09:58 | SW/DCPLANNER ---
RECEIVED AN ORDER FOR THIS PATIENT TO HAVE HOME 02...SENT ORDER AND PATIENT INFORMATION TO [facility] FOR A PORTABLE TO BE DELIVERED TO THE HOSPITAL PRIOR TO PATIENT DISCHARGING TODAY...
--- NOTE | 2017-04-17 11:04 | CARE MANAGER ---
MA[facility] IS DISCHARGING HOME WITH HOME OXYGEN AND AFTERCARE INSTRUCTIONS
== END 2017-04-17 11:55 | disposition home or self-care (01) | DRG 194 ==
LOC: ER 04:23 → 2ND 05:22
PROVIDERS: Admitting Provider Family Medicine; Emergency Provider Emergency Medicine; Visit Provider Internal Medicine Adolescent Medicine
DX: J10.1 Influenza due to other identified influenza virus with other respiratory manifestations (principal); J44.1 Chronic obstructive pulmonary disease with (acute) exacerbation; J44.0 Chronic obstructive pulmonary disease with (acute) lower respiratory infection; J20.9 Acute bronchitis, unspecified
CPT/HCPCS: 36415; 71046; 71275; 80048; 80053; 82803; 83605; 83880; 84484; 85007; 85025; 87040; 87486; 87581; 87633; 87798; 94640; 94760; 94761; 96365; 96366; 96374; 96375; 99282; G0378; J0456; Q9967

== ENCOUNTER → 2017-04-23 11:42 | Outpatient (CLI) | payer MEDICAID, SELFPAY ==
--- NOTE | 2017-04-23 11:58 | XR_ITS ---
XR foot LT min 3V HISTORY: ITS.REASON: LEFT FOOT PAIN,CONTUSION ORDERING PHYSICIAN: Iris Holt DPM PATIENT AGE: 42 years COMPARISON: 09/15/2016 FINDINGS: Weightbearing views are performed. Overall no significant change previous bunionectomy. Metallic loop once again noted along the dorsal proximal aspect of the proximal length of the first digit with minimal osteoarthritic changes of the first MTPJ. Prior fusion of the PIP of the second and third digits. There is some angulation involving the distal aspect of the proximal phalanx of the third digit. No acute fracture or dislocation. IMPRESSION: Overall no significant change from 09/15/2016 in the postsurgical changes as described above.
== END ==
PROVIDERS: PCP Internal Medicine Adolescent Medicine; Visit Provider Podiatrist
DX: M79.672 Pain in left foot (principal); S90.32XA Contusion of left foot, initial encounter
CPT/HCPCS: 73630

== ENCOUNTER 2017-05-24 18:10 | Emergency (ER) | payer MEDICAID, SELFPAY ==
[2017-05-24 18:14] VITALS: BP 131/61; PULSE 81; RESP 20; TEMP 37.2; O2SAT 99; BMI 36.3
--- NOTE | 2017-05-24 18:19 | XR_ITS ---
XR chest 2V COMPARISON: PA and lateral chest 04/14/2017 HISTORY: Chest pain TECHNIQUE: PA and lateral chest FINDINGS: The lung scott are well expanded. There is minimal left basilar atelectasis which was not seen on the recent chest film in April. The remainder lung scott are clear. Cardiac size is normal. Again noted are the sternal wire sutures and surgical clips from the previous bypass procedure and there is a coronary artery stent noted. IMPRESSION: Minimal left basilar atelectasis otherwise negative chest
[2017-05-24 18:48] LABS: Basophils % 0.2 % (0.1-2.0); Eosinophils # 0.1 K/mm3 (0.0-0.4); Eosinophils % 0.8 % (0.1-12.0); Hematocrit 34.8 % (37.0-47.0); Hemoglobin 11.3 g/dL (12.2-16.2); Lymphocytes # 1.7 K/mm3 (0.7-4.5); Lymphocytes % 11.6 K/mm3 (10-50); Mean Corpuscular HGB Conc 32.4 g/dL (31.8-35.4); Mean Corpuscular Hemoglobin 31.4 pg (27.0-31.2); Mean Corpuscular Volume 96.9 fl (81-99); Mean Platelet Volume 8.4 fl (7.4-10.4); Monocytes # 0.6 K/mm3 (0.1-1.0); Neutrophils # 12.1 K/mm3 (1.8-7.8); Neutrophils % 83.5 % (37.0-80.0); Platelet Count 276 K/mm3 (142-424); Red Blood Count 3.59 M/mm3 (4.20-5.40); Red Cell Distribution Width 13.8 % (11.5-17.5); White Blood Count 14.5 K/mm3 (4.8-10.8)
[2017-05-24 19:04] VITALS: PULSE 78
[2017-05-24 19:07] LABS: Alanine Aminotransferase 37 U/L (12-78); Albumin/Globulin Ratio 0.7 (1.1-1.8); Alkaline Phosphatase 116 U/L (46-116); Anion Gap 11.3 mEq/L (5-15); Aspartate Amino Transferase 18 U/L (15-37); Bilirubin,Total 0.7 mg/dL (0.2-1.0); Blood Urea Nitrogen 7 mg/dL (7-18); Calcium 8.2 mg/dL (8.5-10.1); Carbon Dioxide 28 mmol/L (21.0-32.0); Chloride 100 mmol/L (98-107); Creatine Kinase 41 U/L (26-192); Creatinine Clearance Estimated 108 mL/min (0-300); Creatinine,Serum 0.98 mg/dL (0.55-1.02); Estimated Glomerular Filt Rate 62 ml/min (>60); GFR (African American) 75 ML/MIN (>60); Globulin 4.1 gm/dl (1.3-3.2); Glucose 167 mg/dL (74-106); Potassium 3.3 mmoL/L (3.5-5.1); Sodium 136 mmol/L (136-145); Total Protein,Serum 7.1 gm/dL (6.4-8.2); Troponin I < 0.02 ng/ml (0.00-0.06)
--- NOTE | 2017-05-24 19:13 | HMH.EDSOB ---
ED Disposition Clinical Impression: Bronchitis, Acute exacerbation of chronic obstructive airways disease, Tobacco dependence syndrome Disposition: Home, Self-Care Condition on Discharge: Good Additional Instructions: Rx Medrol, Zithromax, continue nebs at home, see Dr. Dominguez in one to three days for follow up. Prescriptions: Azithromycin [Z-Glenn 250mg Tab] 250 mg PO UD DOSE PK #6 tab methylPREDNISolone [Medrol] 4 mg PO DAILY #1 tab.ds.pk Referrals: Lucio Dominguez MD [Primary Care Provider] - - Critical Care Critical Care Time: No Attestation: On 05/24/17, the high probability of a clinically significant, sudden or life threatening deterioration of the following system(s) required my full and direct attention, intervention and personal management. The time I documented below is in addition to time spent performing reported procedures but includes the following listed in this critical care notation. Medical Decision Making Vital Signs: 05/24/17 18:14 05/24/17 19:04 Temperature 98.9 F Temperature Source Oral Pulse Rate 78 Pulse Rate [Right Radial] 81 Respiratory Rate 20 Blood Pressure [Right Arm] 131/61 Blood Pressure Mean [Right Arm] 84 02 Sat by Pulse Oximetry 99 Oxygen Delivery Method Nasal Cannula Oxygen Flow Rate (LPM) 2 - Lab Data Lab Results 05/24/17 18:20: Lactic Acid 1.8 05/24/17 18:20: WBC 14.5 H, RBC 3.59 L, Hgb 11.3 L, Hct 34.8 L, MCV 96.9, MCH 31.4 H, MCHC 32.4, RDW 13.8, Plt Count 276, MPV 8.4, Neut % (Auto) 83.5 H, Lymph % (Auto) 11.6, [place] % (Auto) 4.0, Eos % (Auto) 0.8, Baso % (Auto) 0.2, Neut # (Auto) 12.1 H, Lymph # (Auto) 1.7, [place] # (Auto) 0.6, Eos # (Auto) 0.1, Baso # (Auto) 0.0 05/24/17 18:20: Sodium 136, Potassium 3.3 L, Chloride 100, Carbon Dioxide 28, Anion Gap 11.3, BUN 7, Creatinine 0.98, Estimated Creat Clear 108, Estimated GFR 62, Est GFR ( Amer) 75, Glucose 167 H, Calcium 8.2 L, Total Bilirubin 0.7, AST 18, ALT 37, Alkaline Phosphatase 116, Total Creatine Kinase 41, CK-MB (CK-2) < 0.5, CK-MB (CK-2) Rel Index 1.2, Troponin I < 0.02, Total Protein 7.1, Albumin 3.0 L, Globulin 4.1 H, Albumin/Globulin Ratio 0.7 L Result diagrams: 05/24/17 18:20 05/24/17 18:20 Orders (Tests/Meds): ED MEDICATIONS Discontinued Medications Generic Name Dose Route Start Last Admin Trade Name Freq PRN Reason Stop Dose Admin Albuterol/Ipratropium 3 ml 05/24/17 19:02 05/24/17 19:03 Duoneb 3ml Neb IH 05/24/17 19:03 3 ml ONCE ONE Administration Methylprednisolone Sodium Succinate 125 mg 05/24/17 18:59 05/24/17 19:04 Solu-Medrol 125mg/2ml Vial IV 05/24/17 19:00 125 mg ONCE ONE Administration ORDERS Category Date Time Status XR chest 2V Stat Exams 05/24/17 18:19 Taken PT/PTT Stat Lab 05/24/17 18:36 Ordered Blood Culture Stat Micro 05/24/17 18:20 Received - Radiology Data #1 Image(s): Chest Image Reviewed: Yes I reviewed the patient's radiology image Preliminary Findings: No Infiltrates Seen, Normal Heart Size (sternotomy wires; neg acute) - ECG Data Tracing #1 ECG initial impression date: 05/24/17 ECG initial impression time: 19:30 ECG normal with no acute: arrhythmias, ischemia, conduction abnormalities, chamber hypertrophy Normal Sinus Rhythm: Yes - Josh Inquiry Pt receiving controlled substance: No Medical Decision Making Narrative: color improved, much less wheezing, better movement of air, sats mid to upper 90's on NC, states uses 2.5 LPM at home. Clinically COPD exacerbation. Resp/SOB HPI - General Chief Complaint: Upper Respiratory Infection Stated Complaint: lung pain, headache, shoulder pain Mode of Arrival: Ambulatory Limitations: No Limitations Description of Symptoms (Recalled from ER Triage Doc. by RN): LUNG PAIN, BILATERAL HAND/FINGER TINGLING, SORE THROAT - History of Present Illness Smoker, oxygen dependent, tight cough for the past two days, no fever or vomiting. Arrives wheezing.
[2017-05-24 19:14] LABS: Lactic Acid 1.8 mmol/L (0.4-2.0)
[2017-05-24 19:16] LABS: CKMB Relative Index 1.2 U/L (0-4.0); Creatine Kinase MB < 0.5 mg/ml (0.0-3.6)
--- NOTE | 2017-05-24 19:17 | ED_ITS ---
ED Disposition Clinical Impression: Bronchitis, Acute exacerbation of chronic obstructive airways disease, Tobacco dependence syndrome Disposition: Home, Self-Care Condition on Discharge: Good Additional Instructions: Rx Medrol, Zithromax, continue nebs at home, see Dr. Dominguez in one to three days for follow up. Prescriptions: Azithromycin [Z-Glenn 250mg Tab] 250 mg PO UD DOSE PK #6 tab methylPREDNISolone [Medrol] 4 mg PO DAILY #1 tab.ds.pk Referrals: Lucio Dominguez MD [Primary Care Provider] - - Critical Care Critical Care Time: No Attestation: On 05/24/17, the high probability of a clinically significant, sudden or life threatening deterioration of the following system(s) required my full and direct attention, intervention and personal management. The time I documented below is in addition to time spent performing reported procedures but includes the following listed in this critical care notation. Medical Decision Making Vital Signs: 05/24/17 18:14 05/24/17 19:04 Temperature 98.9 F Temperature Source Oral Pulse Rate 78 Pulse Rate [Right Radial] 81 Respiratory Rate 20 Blood Pressure [Right Arm] 131/61 Blood Pressure Mean [Right Arm] 84 02 Sat by Pulse Oximetry 99 Oxygen Delivery Method Nasal Cannula Oxygen Flow Rate (LPM) 2 - Lab Data Lab Results 05/24/17 18:20: Lactic Acid 1.8 05/24/17 18:20: WBC 14.5 H, RBC 3.59 L, Hgb 11.3 L, Hct 34.8 L, MCV 96.9, MCH 31.4 H, MCHC 32.4, RDW 13.8, Plt Count 276, MPV 8.4, Neut % (Auto) 83.5 H, Lymph % (Auto) 11.6, [place] % (Auto) 4.0, Eos % (Auto) 0.8, Baso % (Auto) 0.2, Neut # (Auto) 12.1 H, Lymph # (Auto) 1.7, [place] # (Auto) 0.6, Eos # (Auto) 0.1, Baso # (Auto) 0.0 05/24/17 18:20: Sodium 136, Potassium 3.3 L, Chloride 100, Carbon Dioxide 28, Anion Gap 11.3, BUN 7, Creatinine 0.98, Estimated Creat Clear 108, Estimated GFR 62, Est GFR ( Amer) 75, Glucose 167 H, Calcium 8.2 L, Total Bilirubin 0.7, AST 18, ALT 37, Alkaline Phosphatase 116, Total Creatine Kinase 41, CK-MB (CK-2) < 0.5, CK-MB (CK-2) Rel Index 1.2, Troponin I < 0.02, Total Protein 7.1, Albumin 3.0 L, Globulin 4.1 H, Albumin/Globulin Ratio 0.7 L Result diagrams: 05/24/17 18:20 05/24/17 18:20 Orders (Tests/Meds): ED MEDICATIONS Discontinued Medications Generic Name Dose Route Start Last Admin Trade Name Freq PRN Reason Stop Dose Admin Albuterol/Ipratropium 3 ml 05/24/17 19:02 05/24/17 19:03 Duoneb 3ml Neb IH 05/24/17 19:03 3 ml ONCE ONE Administration Methylprednisolone Sodium Succinate 125 mg 05/24/17 18:59 05/24/17 19:04 Solu-Medrol 125mg/2ml Vial IV 05/24/17 19:00 125 mg ONCE ONE Administration ORDERS Category Date Time Status XR chest 2V Stat Exams 05/24/17 18:19 Taken PT/PTT Stat Lab 05/24/17 18:36 Ordered Blood Culture Stat Micro 05/24/17 18:20 Received - Radiology Data #1 Image(s): Chest Image Reviewed: Yes I reviewed the patient's radiology image Preliminary Findings: No Infiltrates Seen, Normal Heart Size (sternotomy wires; neg acute) - ECG Data Tracing #1 ECG initial impression date: 05/24/17 ECG initial impression time: 19:30 ECG normal with no acute: arrhythmias, ischemia, conduction abnormalities, chamber hypertrophy Normal Sinus Rhythm: Yes - Josh Inquiry Pt receiving controlled subs
[2017-05-24 20:49] LABS: Activated Partial Thrombo Time 30.1 seconds (23.6-34.0); INR 0.99 (0.9-1.1); Prothrombin Time 10.7 seconds (9.4-11.8)
[2017-05-24 20:53] VITALS: BP 123/40; PULSE 76; RESP 18; TEMP 37.3; O2SAT 97
== END 2017-05-24 20:57 | disposition home or self-care (01) ==
PROVIDERS: Emergency Provider Emergency Medicine; PCP Internal Medicine Adolescent Medicine
DX: J44.0 Chronic obstructive pulmonary disease with (acute) lower respiratory infection (principal); R06.02 Shortness of breath; I10 Essential (primary) hypertension; E78.5 Hyperlipidemia, unspecified; F17.210 Nicotine dependence, cigarettes, uncomplicated; Z79.82 Long term (current) use of aspirin; Z88.2 Allergy status to sulfonamides; Z79.899 Other long term (current) drug therapy
CPT/HCPCS: 71046; 80053; 82550; 82553; 83605; 84484; 85025; 85610; 85730; 87040; 93005; 93041; 96374; 99283

== ENCOUNTER → 2017-07-03 10:43 | Outpatient (CLI) | payer MEDICAID, SELFPAY ==
[2017-07-03 12:15] LABS: Anion Gap 14.4 mEq/L (5-15); Blood Urea Nitrogen 8 mg/dL (7-18); Carbon Dioxide 28 mmol/L (21.0-32.0); Chloride 102 mmol/L (98-107); Creatinine,Serum 0.96 mg/dL (0.55-1.02); Estimated Glomerular Filt Rate 63 ml/min (>60); Free Thyroxine Index 2.1 ug/dL (5.93-13.13); GFR (African American) 76 ML/MIN (>60); Glucose 140 mg/dL (74-106); Potassium 3.4 mmoL/L (3.5-5.1); Sodium 141 mmol/L (136-145); T4 (Thyroxine) 7.3 ug/dl (4.7-13.3); Thyroid Stimulating Hormone 1.48 uIU/ml (0.358-3.740); Triiodothryronine (T3) Uptake 29 % (31-39)
[2017-07-04 09:11] LABS: Vitamin D 25 Hydroxy 10.3 ng/mL (30.0-100.0)
[2017-07-05 06:39] LABS: Vitamin B12 319 pg/mL (232-1245)
== END ==
PROVIDERS: PCP Internal Medicine Adolescent Medicine; Visit Provider Physician Assistant
DX: R06.02 Shortness of breath (principal); I25.10 Atherosclerotic heart disease of native coronary artery without angina pectoris; R53.83 Other fatigue; E78.4 Other hyperlipidemia
CPT/HCPCS: 36415; 80048; 82607; 82652; 83880; 84436; 84443; 84479

== ENCOUNTER → 2017-07-17 12:04 | Outpatient (CLI) | payer MEDICAID, SELFPAY ==
[2017-07-17 14:05] LABS: Anion Gap 11.6 mEq/L (5-15); Blood Urea Nitrogen 9 mg/dL (7-18); Carbon Dioxide 30 mmol/L (21.0-32.0); Chloride 104 mmol/L (98-107); Creatinine,Serum 0.82 mg/dL (0.55-1.02); Estimated Glomerular Filt Rate 76 ml/min (>60); GFR (African American) 92 ML/MIN (>60); Glucose 88 mg/dL (74-106); Potassium 4.6 mmoL/L (3.5-5.1); Sodium 141 mmol/L (136-145)
== END ==
PROVIDERS: Physician Assistant; Visit Provider Internal Medicine
DX: E87.6 Hypokalemia (principal)
CPT/HCPCS: 36415; 80048

== ENCOUNTER → 2017-08-05 12:08 | Outpatient (CLI) | payer MEDICAID, SELFPAY ==
--- NOTE | 2017-08-05 12:16 | XR_ITS ---
XR hip LT 2-3V w/pelvis HISTORY: ITS.REASON: LT HIP PAIN ORDERING PHYSICIAN: Lucio Dominguez MD PATIENT AGE: 42 years FINDINGS: No fracture or dislocation is evident. There is a long intramedullary caesar present within the left femur with an old fracture of the midshaft of the femur. There is abundant callus formation. The IM caesar has an unremarkable appearance although way to the distal aspect of the femur. The hip has an unremarkable appearance. There is a small amount of heterotopic bone formation superior to the greater trochanter. IMPRESSION: 1. No acute finding. 2. Old right midshaft femoral fracture with IM caesar present
== END ==
PROVIDERS: PCP Internal Medicine Adolescent Medicine; Visit Provider Internal Medicine Adolescent Medicine
DX: M25.552 Pain in left hip (principal)
CPT/HCPCS: 73502

== ENCOUNTER 2017-08-06 14:24 | Observation (INO) ==
--- NOTE | 2017-08-06 14:35 | Emergency Department Note ---
ED Disposition Clinical Impression: Chest pain, Coronary arteriosclerosis, Cardiac chest pain Disposition: Admitted As Inpatient Condition on Discharge: Good - Critical Care Critical Care Time: No Attestation: On , the high probability of a clinically significant, sudden or life threatening deterioration of the following system(s) required my full and direct attention, intervention and personal management. The time I documented below is in addition to time spent performing reported procedures but includes the following listed in this critical care notation. Medical Decision Making - Josh Inquiry Pt receiving controlled substance: No Vital Signs: 08/06/17 14:26 08/06/17 14:59 08/06/17 15:05 Temperature 98.7 F 98.4 F Temperature Source Oral Oral Pulse Rate 72 Pulse Rate [Apical] 73 89 Respiratory Rate 22 22 22 Blood Pressure 125/80 Blood Pressure [Right Arm] 142/73 144/90 Blood Pressure Mean [Right Arm] 96 108 Blood Pressure Source Automatic Cuff Blood Pressure Source [Right Arm] Automatic Cuff Automatic Cuff Blood Pressure Position Sitting Blood Pressure Position [Right Arm] Sitting Sitting 02 Sat by Pulse Oximetry 95 99 Oxygen Delivery Method Room Air Nasal Cannula Nasal Cannula Oxygen Flow Rate (LPM) 3 2 08/06/17 15:08 Temperature Temperature Source Pulse Rate Pulse Rate [Apical] Respiratory Rate Blood Pressure Blood Pressure [Right Arm] Blood Pressure Mean [Right Arm] Blood Pressure Source Blood Pressure Source [Right Arm] Blood Pressure Position Blood Pressure Position [Right Arm] 02 Sat by Pulse Oximetry Oxygen Delivery Method Nasal Cannula Oxygen Flow Rate (LPM) - Lab Data Lab Results 08/06/17 14:40: WBC 10.5, RBC 3.91 L, Hgb 12.6, Hct 38.1, MCV 97.6, MCH 32.2 H, MCHC 33.0, RDW 15.2, Plt Count 349, MPV 8.7, Neut % (Auto) 69.7, Lymph % (Auto) 24.5, [place] % (Auto) 3.9, Eos % (Auto) 1.5, Baso % (Auto) 0.3, Neut # (Auto) 7.3 , Lymph # (Auto) 2.6, [place] # (Auto) 0.4, Eos # (Auto) 0.2, Baso # (Auto) 0.0 08/06/17 14:40: Sodium 141, Potassium 3.5, Chloride 100, Carbon Dioxide 30, Anion Gap 14.5, BUN 12, Creatinine 1.13 H, Estimated Creat Clear 95, Estimated GFR 52 L, Est GFR ( Amer) 63, Glucose 144 H, Troponin I < 0.02 Result diagrams: 08/06/17 14:40 08/06/17 14:40 Orders (Tests/Meds): ED MEDICATIONS Generic Name Dose Route Start Last Admin Trade Name Linda PRN Reason Stop Dose Admin Fentanyl Citrate 25 mcg 08/06/17 14:51 Fentanyl 250mcg/5ml Vial IV 08/07/17 14:51 Q3MINP PRN Moderate to Severe Pain Fentanyl Citrate 50 mcg 08/06/17 14:51 Fentanyl 250mcg/5ml Vial IV 08/07/17 14:51 Q3MINP PRN Moderate to Severe Pain Flumazenil 0.2 mg 08/06/17 14:51 Romazicon 0.1mg/Ml 5ml Vial IV 08/06/17 23:00 NEEDED PRN Sedation Sodium Chloride 1,000 mls @ 999 mls/hr 08/06/17 14:45 08/06/17 14:45 Sod Chlor 0.9% 1000ml Bag IV 08/06/17 15:45 999 mls/hr .Q1H1M YANDY Administration Midazolam HCl 1 mg 08/06/17 14:51 Midazolam 2mg/2ml Vial IV 08/07/17 14:51 Q3MINP PRN Sedation Midazolam HCl 1 mg 08/06/17 14:51 Midazolam 1mg/Ml 5ml Vial IV 08/07/17 14:51 Q3MINP PRN Sedation Naloxone HCl 0.4 mg 08/06/17 14:51 Narcan 0.4mg/Ml Vial IV 08/07/17 14:51 Q5MINP PRN Decreased respirations Discontinued Medications Generic Name Dose Route Start Last Admin Trade Name Linda PRN Reason Stop Dose Admin Aspirin 243 mg 08/06/17 14:34 08/06/17 14:34 Aspirin 81mg Chewable Tablet PO 08/06/17 14:35 243 mg ONCE ONE Administration Nitroglycerin 1 gm 08/06/17 14:34 08/06/17 14:35 Nitroglycerin 1 Inch Oint Udp TD 08/06/17 14:35 1 gm ONCE ONE Administration Ondansetron HCl 4 mg 08/06/17 14:34 08/06/17 14:35 Zofran 4mg/2ml Vial IV 08/06/17 14:35 4 mg ONCE ONE Administration ORDERS Category Date Time Status Chest XR -- portable [XR chest portable] Stat Exams 08/06/17 14:32 Taken - Radiology Data #1 Image(s): Chest Image Reviewed: Yes I reviewed the patient's radiology image Preliminary Findings: Normal/NAD (sternotomy wires) - ECG Data Tracing #1 ECG initial impression date: 08/06/17 ECG initial impression time: 14:30 Normal Sinus Rhythm: Yes Ischemic changes: other (ST depression/ischemic changes: EKG 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 Reeder Reason -: Pt condition, Cardiology Eval/Care Comment/Response: Dr. Reeder has phoned ED after review of EKG; will call us back shortly Additional Consult: PCP Dr. Dominguez paged regarding admit Reason -: Admission Chest Pain HPI - General Chief Complaint: Chest Pain Stated Complaint: chest pain Time Seen by Provider: 08/06/17 14:32 Mode of Arrival: Ambulatory Source of Information: Patient Limitations: No Limitations Description of Symptoms (Recalled from ER Triage Doc. by RN): Pt reports began having chest pain approx 20 minutes ago. Pt reports suddenly felt like got kicked in the chest, reports now has chest pressure. - History of Present Illness HPI narrative: Pt with CAD, acute onset at rest, SS, radiating to LUE, feels nauseated, no SOB. States pt of Dr. Reeder, hx multiple stents. MD complaint: chest pain indicative of cardiac Duration: constant Activity at onset: during rest Pain location: substernal Severity: moderate Quality: aching Pain radiation: LUE Relieving factors: nothing Exacerbating factors: nothing Associated symptoms: nausea Risk Factors for CAD: Hypertension, Family Hx of CAD, Smoking Treatments prior to or on arrival for Cardiac Chest Pain: aspirin - MARISOL Score Non-Stemi Age of patient: Less than 65 yrs Number of risk factors for CAD: Presence of 3 or more Prior coronary artery stenosis(seen in coronary angiography): 50% or more ST-Segment deviation on ECG (more than 1 min): Absent Prior aspirin intake: ASA intake in the last 7 days Severe anginal chest pain: No or one episode in last 24 hours Elevated cardiac markers(CK-MB or troponin): Absent Non-Stemi Risk Score: 3 (to cathode builder already) - Related Data Home Medications Medication Instructions Recorded Confirmed aspirin 81 mg tablet,delayed 81 mg PO QDAY 04/05/17 04/14/17 release atorvastatin 80 mg tablet 80 mg PO QDAY 04/05/17 04/14/17 clonazepam 1 mg tablet 1 mg PO BID tab 04/05/17 04/14/17 fluticasone 50 mcg/actuation nasal 2 spray INTRANASAL QDAY 04/05/17 04/14/17 spray,suspension gabapentin 800 mg tablet 800 mg PO TID 04/05/17 04/14/17 mometasone-formoterol HFA 100 2 puff INHALATION TID g 04/05/17 04/14/17 mcg-5 mcg/actuation aerosol inhaler montelukast 10 mg tablet 10 mg PO QHS 04/05/17 04/14/17 nitroglycerin 0.4 mg sublingual 0.4 mg SUBLINGUAL Q5M PRN 04/05/17 04/14/17 tablet omeprazole magnesium 20 mg 40 mg PO QDAY tab 04/05/17 04/14/17 tablet,delayed release ticagrelor 90 mg tablet 90 mg PO BID 04/05/17 04/14/17 tiotropium bromide 2.5 2 puff INHALATION QDAY 04/05/17 04/14/17 mcg/actuation mist for inhalation trazodone 100 mg tablet 50 mg PO QHS 04/05/17 04/14/17 Benzonatate [Tessalon Perle 100mg 100 mg PO TID 04/14/17 04/14/17 Cap] cetirizine 10 mg tablet 10 mg PO 30 Days tab 04/23/17 lidocaine-prilocaine 2.5 %-2.5 % 2.5 g TOPICAL 7 Days #120 g 04/23/17 topical cream tiotropium bromide 1.25 INHALATION 30 Days #4 04/23/17 mcg/actuation mist for inhalation urea 20 % topical cream TOPICAL 14 Days #1 04/23/17 Previous Rx's Medication Instructions Recorded Nystatin [Nystatin Susp 500,000 500,000 unit PO TIDP PRN #8 oz 04/17/17 Units/5mL Udc] bisoprolol fumarate 10 mg tablet 10 mg PO BID #180 tab 05/21/17 furosemide 40 mg tablet 40 mg PO DAILY #30 tab 07/03/17 cholecalciferol (vitamin D3) 1,000 1,000 unit PO ONCE #90 cap 07/04/17 unit capsule potassium chloride ER 20 mEq 20 meq PO DAILY #30 tab 07/04/17 tablet,extended release spironolactone 25 mg tablet 25 mg PO QAM #30 tab 07/11/17 ranolazine ER 500 mg 500 mg PO Q12H #60 tab 07/25/17 tablet,extended release,12 hr Allergies Allergy/AdvReac Type Severity Reaction Status Date / Time Sulfa (Sulfonamide Allergy Unknown Verified 07/03/17 10:15 Antibiotics) [SULFA (SULFONAMIDE ANTIBIOTICS)] [facility] History Medical History: Reports:: Chronic Obstructive Pulmonary Disease (COPD), Coronary Artery Disease, Hyperlipidemia, Hypertension Denies:: Cancer, Diabetes Mellitus Type 1, Diabetes Mellitus Type 2, MRSA Other Medical History: Reports: Fibromyalgia Other Surgeries: Yes: Appendectomy, CABG, Cancer Surgery, Cardiac Catheterization, Hysterectomy-Total, Hysterectomy-Partial, Other Amputation: No Fractures: No - Social History Smoking Status: Current every day smoker Tobacco Type: cigarettes # Packs/Day (cigarettes): 1 Alcohol Intake: never Alcohol Intake Frequency:: 0-2 drinks per day Substance Use Type: denies use Occupational Status: disabled Family Hx:: Coronary Artery Disease, Diabetes, Hypertension, Cancer ROS Obtained: Yes All systems reviewed & no additional complaints Physical Exam - General General appearance: alert, in distress - Head Head exam: atraumatic, normocephalic - Eye Eye exam: Present: normal appearance, PERRL, EOMI - ENT ENT exam: Present: normal oropharynx - Neck Neck exam: Present: normal inspection, full ROM, trachea midline. Absent: meningismus - Chest Chest inspection: Present: normal inspection, symmetric chest wall rise. Absent : tenderness - Respiratory Respiratory exam: Present: normal lung sounds bilaterally. Absent: respiratory distress - Cardiovascular Cardiovascular exam: Present: regular rate, normal rhythm. Absent: JVD - Abdominal Exam Abdominal exam: Present: soft, normal bowel sounds. Absent: distention, tenderness, guarding, bruit, pulsatile mass - Extremities Exam Extremities exam: Present: normal inspection, full ROM. Absent: tenderness, normal capillary refill, pedal edema, calf tenderness - Neurological Exam Neurological exam: Present: alert, oriented X3, normal gait - Psychiatric Psychiatric exam: Present: normal affect, normal mood - Skin Skin exam: Present: warm, dry, diaphoresis - Lymphatic Lymphatic Findings: no adenopathy
[2017-08-06 15:00] LABS: Basophils % 0.3 % (0.1-2.0); Eosinophils # 0.2 K/mm3 (0.0-0.4); Eosinophils % 1.5 % (0.1-12.0); Hematocrit 38.1 % (37.0-47.0); Hemoglobin 12.6 g/dL (12.2-16.2); Lymphocytes # 2.6 K/mm3 (0.7-4.5); Lymphocytes % 24.5 K/mm3 (10-50); Mean Corpuscular Hemoglobin 32.2 pg (27.0-31.2); Mean Corpuscular Volume 97.6 fl (81-99); Mean Platelet Volume 8.7 fl (7.4-10.4); Monocytes # 0.4 K/mm3 (0.1-1.0); Monocytes % 3.9 % (1.7-9.3); Neutrophils # 7.3 K/mm3 (1.8-7.8); Neutrophils % 69.7 % (37.0-80.0); Platelet Count 349 K/mm3 (142-424); Red Blood Count 3.91 M/mm3 (4.20-5.40); Red Cell Distribution Width 15.2 % (11.5-17.5); White Blood Count 10.5 K/mm3 (4.8-10.8)
[2017-08-06 15:09] LABS: Anion Gap 14.5 mEq/L (5-15); Blood Urea Nitrogen 12 mg/dL (7-18); Carbon Dioxide 30 mmol/L (21.0-32.0); Chloride 100 mmol/L (98-107); Glucose 144 mg/dL (74-106); Potassium 3.5 mmoL/L (3.5-5.1); Sodium 141 mmol/L (136-145)
--- NOTE | 2017-08-06 21:22 | History & Physical Report ---
*Admission Date: 08/06/17 *Chief complaint: chest pain *History of present illness: 42 year old female with a history of HTN, diabetes, CAD and tobacco use disorder presented to the ED with chest pain. Patient reports she had acute onset at midsternal chest pain that radiates to her left arm. + nausea, no shortness of breath. Symptoms began at rest. She is followed by Dr. Reeder and has h/o multiple coronary stents. In the ED, she was found to have ST depression on her EKG. Dr. Reeder was consulted. Patient was taken to the laboratory immunologist and one stent was placed. Cath report not yet available for review. She was admitted to observation for further evaluation. [facility] History I have reviewed the patient's past medical history: Yes Medical History: Reports:: Chronic Obstructive Pulmonary Disease (COPD), Coronary Artery Disease, Hyperlipidemia, Hypertension Denies:: Cancer, Diabetes Mellitus Type 1, Diabetes Mellitus Type 2, MRSA Other Medical History: Reports: Fibromyalgia Other Surgeries: Yes: Appendectomy, CABG, Cancer Surgery, Cardiac Catheterization, Hysterectomy-Total, Hysterectomy-Partial, Other Amputation: No Fractures: No - *Social History Smoking Status: Current every day smoker Tobacco Type: cigarettes # Packs/Day (cigarettes): 1 Alcohol Intake: never Alcohol Intake Frequency:: 0-2 drinks per day Substance Use Type: denies use Occupational Status: disabled - Psychiatric History Expresses thoughts of harming self/others: None Suicide Plan Description: No Plan *Family Hx:: Coronary Artery Disease, Diabetes, Hypertension, Cancer Review of Systems - Review of Systems Review of systems:: pertinent systems reviewed and negative unless documented below Meds Home Medications Medication Instructions Recorded Confirmed Type aspirin 81 mg tablet,delayed 81 mg PO QDAY 04/05/17 04/14/17 History release atorvastatin 80 mg tablet 80 mg PO QDAY 04/05/17 04/14/17 History clonazepam 1 mg tablet 1 mg PO BID tab 04/05/17 04/14/17 History fluticasone 50 mcg/actuation nasal 2 spray INTRANASAL QDAY 04/05/17 04/14/17 History spray,suspension gabapentin 800 mg tablet 800 mg PO TID 04/05/17 04/14/17 History mometasone-formoterol HFA 100 2 puff INHALATION TID g 04/05/17 04/14/17 History mcg-5 mcg/actuation aerosol inhaler montelukast 10 mg tablet 10 mg PO QHS 04/05/17 04/14/17 History nitroglycerin 0.4 mg sublingual 0.4 mg SUBLINGUAL Q5M PRN 04/05/17 04/14/17 History tablet omeprazole magnesium 20 mg 40 mg PO QDAY tab 04/05/17 04/14/17 History tablet,delayed release ticagrelor 90 mg tablet 90 mg PO BID 04/05/17 04/14/17 History tiotropium bromide 2.5 2 puff INHALATION QDAY 04/05/17 04/14/17 History mcg/actuation mist for inhalation trazodone 100 mg tablet 50 mg PO QHS 04/05/17 04/14/17 History Benzonatate [Tessalon Perle 100mg 100 mg PO TID 04/14/17 04/14/17 History Cap] cetirizine 10 mg tablet 10 mg PO 30 Days tab 04/23/17 History lidocaine-prilocaine 2.5 %-2.5 % 2.5 g TOPICAL 7 Days #120 g 04/23/17 History topical cream tiotropium bromide 1.25 INHALATION 30 Days #4 04/23/17 History mcg/actuation mist for inhalation urea 20 % topical cream TOPICAL 14 Days #1 04/23/17 History Allergies Allergy/AdvReac Type Severity Reaction Status Date / Time Sulfa (Sulfonamide Allergy Unknown Verified 07/03/17 10:15 Antibiotics) [SULFA (SULFONAMIDE ANTIBIOTICS)] Exam Vital signs and Labs for Last 24 Hours: Temp Pulse Resp BP Pulse Ox 97.9 F 52 L 16 106/58 100 08/06/17 19:25 08/06/17 19:25 08/06/17 19:25 08/06/17 19:25 08/06/17 19:25 Laboratory Results - last 24 hr 08/06/17 14:40: WBC 10.5, RBC 3.91 L, Hgb 12.6, Hct 38.1, MCV 97.6, MCH 32.2 H, MCHC 33.0, RDW 15.2, Plt Count 349, MPV 8.7, Neut % (Auto) 69.7, Lymph % (Auto) 24.5, [place] % (Auto) 3.9, Eos % (Auto) 1.5, Baso % (Auto) 0.3, Neut # (Auto) 7.3 , Lymph # (Auto) 2.6, [place] # (Auto) 0.4, Eos # (Auto) 0.2, Baso # (Auto) 0.0 08/06/17 14:40: Sodium 141, Potassium 3.5, Chloride 100, Carbon Dioxide 30, Anion Gap 14.5, BUN 12, Creatinine 1.13 H, Estimated Creat Clear 95, Estimated GFR 52 L, Est GFR ( Amer) 63, Glucose 144 H, Troponin I < 0.02 08/06/17 16:28: Activated Clotting Time 327 H* I & O for Last 24 hours: Intake & Output 08/04/17 08/05/17 08/06/17 08/07/17 11:59 11:59 11:59 11:59 Intake Total 300 / 300 Balance 300 / 300 Weight 211 lb 9 oz Narrative: Sedated, awakens to light touch. Rate and rhythm regular. Trace LE edema. Radial compression device in place on right arm. Neurovascular status intact. Abdomen soft and nontender. Superficial scratches on BLE H&P: Result - Labs Labs: Short CBC 08/06/17 Range/Units 14:40 WBC 10.5 (4.8-10.8) K/mm3 Hgb 12.6 (12.2-16.2) g/dL Hct 38.1 (37.0-47.0) % Plt Count 349 (142-424) K/mm3 BMP 08/06/17 14:40 Sodium 141 Potassium 3.5 Chloride 100 Carbon Dioxide 30 BUN 12 Creatinine 1.13 H Glucose 144 H Cardiac Enzymes 08/06/17 Range/Units 14:40 Troponin I < 0.02 (0.00-0.06) ng/ml Assessment and Plan (1) Acute coronary syndrome Current visit: Yes Status: Acute Category: Medical Code(s): I24.9 - Acute ischemic heart disease, unspecified - Assessment and plan all Dx Assessment and Plan for all problems:: ADmit for observation. Monitor telemetry. Await cardiology consult note for further recommendations.
--- NOTE | 2017-08-06 22:54 | Consult Report ---
History of Present Illness Consult date: 08/06/17 Requesting physician: Lucio Dominguez Consult reason: chest pain Chief complaint: chest pain Additional Medical History:: 1. Coronary artery disease A. Drug-eluting stent to LEFT main, December/2014 B. Drug-eluting stent to circumflex and left anterior descending, 04/2015 C. Coronary bypass grafting 3 including SWANSON to left anterior descending, SVG to the ramus and obtuse marginal arteries and a sequential fashion, 07/2015 , Dr. Tate Browning. Patient did have emergent reentry for bleeding on 1915. D. Coronary artery stenting to LEFT main and left anterior descending, 2015 E. NSTEMI, 10/2015, with subsequent LHC on 11/10/2015 showing patent Left main and LAD stents with a 70% mid vessel stenosis for which medical therapy has been recommended unless patient has recalcitrant angina. SWANSON is physiologically occluded. EF normal. F. Abnormal Lexiscan Myoview with anteroapical ischemia 05/2016 G. cardiac catheterization, 05/2016, 2 HOLLY to Proximal to mid LAD. PTCA of second diagonal and left main. Physiologically occluded SWANSON. Normal LVEF and LVEDP. H. LHC for ACS, 08/06/17, HOLLY to mid LAD for in-stent restenosis. LVEF 55% with LVEDP of 30 mm Hg. 2. Continued tobacco use 3. Hypertension 4. Hyperlipidemia 5. Severe chronic obstructive pulmonary disease, follows with Dr. Richey 6. Chronic neck pain since bypass surgery 7. History of ovarian mass for which she needs surgical intervention but due to her recurrent coronary artery disease this has not been performed at this time. Patient is high risk and will need to have this done at a tertiary care center. 8. Medication non-compliance 9. Bipolar Disorder 10. Cerebrovascular disease with severe left vertebral artery stenosis History of present illness: 42 yo WF with known CAD with history of CABG and multiple stents presented to the ER for unrelenting CP with radiation to left arm despite dual antiplatelet therapy, isosorbide and ranexa use. EKG in ER noted to show STT changes suggestive of ACS. Pt started on NTG paste and recommendation for urgent cath after seen by cardiology in ER. Pt continues to smoke. [facility] History Medical History: Reports:: Chronic Obstructive Pulmonary Disease (COPD), Coronary Artery Disease, Hyperlipidemia, Hypertension Denies:: Cancer, Diabetes Mellitus Type 1, Diabetes Mellitus Type 2, MRSA Other Medical History: Reports: Fibromyalgia Other Surgeries: Yes: Appendectomy, CABG, Cancer Surgery, Cardiac Catheterization, Hysterectomy-Total, Hysterectomy-Partial, Other Amputation: No Fractures: No - *Social History Smoking Status: Current every day smoker Tobacco Type: cigarettes # Packs/Day (cigarettes): 1 Alcohol Intake: never Alcohol Intake Frequency:: 0-2 drinks per day Substance Use Type: denies use Occupational Status: disabled - Psychiatric History Expresses thoughts of harming self/others: None Suicide Plan Description: No Plan *Family Hx:: Coronary Artery Disease, Diabetes, Hypertension, Cancer Meds Home Medications Medication Instructions Recorded Confirmed Type aspirin 81 mg tablet,delayed 81 mg PO QDAY 04/05/17 04/14/17 History release atorvastatin 80 mg tablet 80 mg PO QDAY 04/05/17 04/14/17 History clonazepam 1 mg tablet 1 mg PO BID tab 04/05/17 04/14/17 History fluticasone 50 mcg/actuation nasal 2 spray INTRANASAL QDAY 04/05/17 04/14/17 History spray,suspension gabapentin 800 mg tablet 800 mg PO TID 04/05/17 04/14/17 History mometasone-formoterol HFA 100 2 puff INHALATION TID g 04/05/17 04/14/17 History mcg-5 mcg/actuation aerosol inhaler montelukast 10 mg tablet 10 mg PO QHS 04/05/17 04/14/17 History nitroglycerin 0.4 mg sublingual 0.4 mg SUBLINGUAL Q5M PRN 04/05/17 04/14/17 History tablet omeprazole magnesium 20 mg 40 mg PO QDAY tab 04/05/17 04/14/17 History tablet,delayed release ticagrelor 90 mg tablet 90 mg PO BID 04/05/17 04/14/17 History tiotropium bromide 2.5 2 puff INHALATION QDAY 04/05/17 04/14/17 History mcg/actuation mist for inhalation trazodone 100 mg tablet 50 mg PO QHS 04/05/17 04/14/17 History Benzonatate [Tessalon Perle 100mg 100 mg PO TID 04/14/17 04/14/17 History Cap] cetirizine 10 mg tablet 10 mg PO 30 Days tab 01/23/18 History lidocaine-prilocaine 2.5 %-2.5 % 2.5 g TOPICAL 7 Days #120 g 04/23/17 History topical cream tiotropium bromide 1.25 INHALATION 30 Days #4 04/23/17 History mcg/actuation mist for inhalation urea 20 % topical cream TOPICAL 14 Days #1 04/23/17 History Allergies Allergy/AdvReac Type Severity Reaction Status Date / Time Sulfa (Sulfonamide Allergy Unknown Verified 07/03/17 10:15 Antibiotics) [SULFA (SULFONAMIDE ANTIBIOTICS)] Review of Systems - *Cardiovascular Reports chest pain - *Respiratory Reports shortness of breath with activity - *Musculoskeletal Reports back pain Exam Vital signs and Labs for Last 24 Hours: Temp Pulse Resp BP Pulse Ox 97.9 F 48 L 17 100/76 100 08/06/17 19:25 08/06/17 21:55 08/06/17 21:55 08/06/17 21:55 08/06/17 21:55 Laboratory Results - last 24 hr 08/06/17 14:40: WBC 10.5, RBC 3.91 L, Hgb 12.6, Hct 38.1, MCV 97.6, MCH 32.2 H, MCHC 33.0, RDW 15.2, Plt Count 349, MPV 8.7, Neut % (Auto) 69.7, Lymph % (Auto) 24.5, [place] % (Auto) 3.9, Eos % (Auto) 1.5, Baso % (Auto) 0.3, Neut # (Auto) 7.3 , Lymph # (Auto) 2.6, [place] # (Auto) 0.4, Eos # (Auto) 0.2, Baso # (Auto) 0.0 08/06/17 14:40: Sodium 141, Potassium 3.5, Chloride 100, Carbon Dioxide 30, Anion Gap 14.5, BUN 12, Creatinine 1.13 H, Estimated Creat Clear 95, Estimated GFR 52 L, Est GFR ( Amer) 63, Glucose 144 H, Troponin I < 0.02 08/06/17 16:28: Activated Clotting Time 327 H* I & O for Last 24 hours: Intake & Output 08/04/17 08/05/17 08/06/17 08/07/17 11:59 11:59 11:59 11:59 Intake Total 300 / 300 Balance 300 / 300 Weight 211 lb 9 oz - *Routine Neck Exam Present: JVD, carotid bruit - *Routine Respiratory Exam Present: CTA bilaterally - *Routine Cardiovascular Exam Present: RRR - *Routine Neurological Exam Present: alert, oriented X3, moving all extremities Assessment and Plan (1) Acute coronary syndrome Problem details: Resolved after stent placement. And to discharge home today. Continue current medications. Strongly encouraged complete smoking cessation. Current visit: Yes Status: Acute Category: Medical Code(s): I24.9 - Acute ischemic heart disease, unspecified (2) Coronary arteriosclerosis Current visit: Yes Status: Chronic Category: Medical Code(s): I25.10 - Atherosclerotic heart disease of [place] coronary artery without angina pectoris (3) Chronic obstructive lung disease Current visit: No Status: Acute Qualifiers: COPD type: COPD with acute exacerbation Qualified Code(s): J44.1 - Chronic obstructive pulmonary disease with (acute) exacerbation Category: Medical Code(s): J44.9 - Chronic obstructive pulmonary disease, unspecified (4) Hyperlipidemia Current visit: No Status: Chronic Qualifiers: Hyperlipidemia type: other hyperlipidemia Qualified Code(s): E78.4 - Other hyperlipidemia Category: Medical Code(s): E78.5 - Hyperlipidemia, unspecified (5) Hypertensive heart disease Current visit: No Status: Chronic Qualifiers: Heart failure presence: without heart failure Qualified Code(s): I11.9 - Hypertensive heart disease without heart failure Category: Medical Code(s): I11.9 - Hypertensive heart disease without heart failure (6) Tobacco dependence syndrome Current visit: No Status: Chronic Category: Medical Code(s): F17.200 - Nicotine dependence, unspecified, uncomplicated - Assessment and plan all Dx Assessment and Plan for all problems:: 1. Recommendation for urgent cardiac cath. 2. Continue ASA/Brilinta 3. Smoking cessation
[2017-08-07 05:46] LABS: Basophils % 0.3 % (0.1-2.0); Eosinophils # 0.1 K/mm3 (0.0-0.4); Eosinophils % 1.5 % (0.1-12.0); Hematocrit 36.6 % (37.0-47.0); Hemoglobin 11.8 g/dL (12.2-16.2); Lymphocytes % 23.2 K/mm3 (10-50); Mean Corpuscular HGB Conc 32.3 g/dL (31.8-35.4); Mean Corpuscular Volume 99.1 fl (81-99); Mean Platelet Volume 8.4 fl (7.4-10.4); Monocytes # 0.4 K/mm3 (0.1-1.0); Monocytes % 4.9 % (1.7-9.3); Neutrophils # 6.2 K/mm3 (1.8-7.8); Neutrophils % 70.1 % (37.0-80.0); Platelet Count 288 K/mm3 (142-424); Red Blood Count 3.69 M/mm3 (4.20-5.40); Red Cell Distribution Width 15.2 % (11.5-17.5); White Blood Count 8.8 K/mm3 (4.8-10.8)
[2017-08-07 05:50] LABS: Anion Gap 12.6 mEq/L (5-15); Potassium 3.6 mmoL/L (3.5-5.1)
[2017-08-07 08:10] VITALS: BP 108/63
--- NOTE | 2017-08-07 08:25 | Discharge Summary ---
General - General Admission date:: 08/06/17 Discharge date: 08/07/17 HPI HPI: 42 year old female with a history of HTN, diabetes, CAD and tobacco use disorder presented to the ED with chest pain. Patient reports she had acute onset at midsternal chest pain that radiates to her left arm. + nausea, no shortness of breath. Symptoms began at rest. She is followed by Dr. Reeder and has h/o multiple coronary stents. In the ED, she was found to have ST depression on her EKG. Dr. Reeder was consulted. Patient was taken to the label maker and one stent was placed. Cath report not yet available for review. She was admitted to observation for further evaluation. Hospital Course Hospital Course: Patient was admitted, taken urgently to [facility]. Please see cardiology notes for details, briefly, patient had suffered in-stent restenosis and another stent was deployed with excellent results. The patient has had no further chest pain and has been stable overnight in the overflow ICU. This morning she is doing well. No complaints of pain. Objective Vital signs: Temp Pulse Resp BP Pulse Ox 97.7 F 58 L 18 108/63 96 08/07/17 08:00 08/07/17 08:00 08/07/17 08:00 08/07/17 08:00 08/07/17 08:00 Narrative: Patient is alert, pleasant. Oriented 3. Lungs have smoker's rhonchi but otherwise clear. Heart rate regular. Abdomen soft and nontender. Results Labs on day of discharge: Labs from last 24 hours 08/07/17 08/07/17 08/06/17 05:20 05:20 16:28 WBC 8.8 RBC 3.69 L Hgb 11.8 L Hct 36.6 L MCV 99.1 H MCH 32.0 H MCHC 32.3 RDW 15.2 Plt Count 288 MPV 8.4 Neut % (Auto) 70.1 Lymph % (Auto) 23.2 [facility] % (Auto) 4.9 Eos % (Auto) 1.5 Baso % (Auto) 0.3 Neut # (Auto) 6.2 Lymph # (Auto) 2.0 [facility] # (Auto) 0.4 Eos # (Auto) 0.1 Baso # (Auto) 0.0 Activated Clotting Time 327 H* Sodium 143 Potassium 3.6 Chloride 104 Carbon Dioxide 30 Anion Gap 12.6 BUN 10 Creatinine 1.00 Estimated Creat Clear 109 Estimated GFR 60 Est GFR ( Amer) 73 Glucose 92 D Troponin I 08/06/17 08/06/17 14:40 14:40 WBC 10.5 RBC 3.91 L Hgb 12.6 Hct 38.1 MCV 97.6 MCH 32.2 H MCHC 33.0 RDW 15.2 Plt Count 349 MPV 8.7 Neut % (Auto) 69.7 Lymph % (Auto) 24.5 [facility] % (Auto) 3.9 Eos % (Auto) 1.5 Baso % (Auto) 0.3 Neut # (Auto) 7.3 Lymph # (Auto) 2.6 [facility] # (Auto) 0.4 Eos # (Auto) 0.2 Baso # (Auto) 0.0 Activated Clotting Time Sodium 141 Potassium 3.5 Chloride 100 Carbon Dioxide 30 Anion Gap 14.5 BUN 12 Creatinine 1.13 H Estimated Creat Clear 95 Estimated GFR 52 L Est GFR ( Amer) 63 Glucose 144 H Troponin I < 0.02 DS: Diagnosis - Discharge Diagnosis (1) Acute coronary syndrome Status: Acute Problem details: Resolved after stent placement. And to discharge home today. Continue current medications. Strongly encouraged complete smoking cessation. (2) Coronary arteriosclerosis Status: Chronic (3) Chronic obstructive lung disease Status: Acute (4) Hyperlipidemia Status: Chronic (5) Hypertensive heart disease Status: Chronic (6) Tobacco dependence syndrome Status: Chronic Discharge Plan - Patient Discharge Instructions ACTIVITY: Continue current activity DIET: cardiac - Follow up Plan Follow up with: Lucio Dominguez MD [Primary Care Provider] - Hadley Reeder MD [Staff Physician] - 1 week Disposition: Home, Self-Group Home Medications: Home Medications Medication Instructions Recorded Confirmed Type aspirin 81 mg tablet,delayed 81 mg PO QDAY 04/05/17 04/14/17 History release atorvastatin 80 mg tablet 80 mg PO QDAY 04/05/17 04/14/17 History clonazepam 1 mg tablet 1 mg PO BID tab 04/05/17 04/14/17 History fluticasone 50 mcg/actuation nasal 2 spray INTRANASAL QDAY 04/05/17 04/14/17 History spray,suspension gabapentin 800 mg tablet 800 mg PO TID 04/05/17 04/14/17 History mometasone-formoterol HFA 100 2 puff INHALATION TID g 04/05/17 04/14/17 History mcg-5 mcg/actuation aerosol inhaler montelukast 10 mg tablet 10 mg PO QHS 04/05/17 04/14/17 History nitroglycerin 0.4 mg sublingual 0.4 mg SUBLINGUAL Q5M PRN 04/05/17 04/14/17 History tablet omeprazole magnesium 20 mg 40 mg PO QDAY tab 04/05/17 04/14/17 History tablet,delayed release ticagrelor 90 mg tablet 90 mg PO BID 04/05/17 04/14/17 History tiotropium bromide 2.5 2 puff INHALATION QDAY 04/05/17 04/14/17 History mcg/actuation mist for inhalation trazodone 100 mg tablet 50 mg PO QHS 04/05/17 04/14/17 History Benzonatate [Tessalon Perle 100mg 100 mg PO TID 04/14/17 04/14/17 History Cap] cetirizine 10 mg tablet 10 mg PO 30 Days tab 04/23/17 History lidocaine-prilocaine 2.5 %-2.5 % 2.5 g TOPICAL 7 Days #120 g 04/23/17 History topical cream tiotropium bromide 1.25 INHALATION 30 Days #4 04/23/17 History mcg/actuation mist for inhalation urea 20 % topical cream TOPICAL 14 Days #1 04/23/17 History Prescriptions/Medication Reconciliation: Continue ticagrelor 90 mg tablet 90 mg PO BID trazodone 100 mg tablet 50 mg PO QHS mometasone-formoterol HFA 100 mcg-5 mcg/actuation aerosol inhaler 2 puff INHALATION TID g fluticasone 50 mcg/actuation nasal spray,suspension 2 spray INTRANASAL QDAY clonazepam 1 mg tablet 1 mg PO BID tab gabapentin 800 mg tablet 800 mg PO TID nitroglycerin 0.4 mg sublingual tablet 0.4 mg SUBLINGUAL Q5M PRN PRN Reason: Chest Pain omeprazole magnesium 20 mg tablet,delayed release 40 mg PO QDAY tab montelukast 10 mg tablet 10 mg PO QHS tiotropium bromide 2.5 mcg/actuation mist for inhalation 2 puff INHALATION QDAY lidocaine-prilocaine 2.5 %-2.5 % topical cream 2.5 g TOPICAL 7 Days #120 g urea 20 % topical cream TOPICAL 14 Days #1 cetirizine 10 mg tablet 10 mg PO 30 Days tab bisoprolol fumarate 10 mg tablet 10 mg PO BID #180 tab furosemide 40 mg tablet 40 mg PO DAILY #30 tab potassium chloride ER 20 mEq tablet,extended release 20 meq PO DAILY #30 tab aspirin 81 mg tablet,delayed release 81 mg PO QDAY atorvastatin 80 mg tablet 80 mg PO QDAY tiotropium bromide 1.25 mcg/actuation mist for inhalation INHALATION 30 Days #4 cholecalciferol (vitamin D3) 1,000 unit capsule 1,000 unit PO ONCE #90 cap spironolactone 25 mg tablet 25 mg PO QAM #30 tab ranolazine ER 500 mg tablet,extended release,12 hr 500 mg PO Q12H #60 tab Benzonatate [Tessalon Perle 100mg Cap] 100 mg PO TID Nystatin [Nystatin Susp 500,000 Units/5mL Udc] 500,000 unit PO TIDP PRN #8 oz PRN Reason: Thrush
== END 2017-08-07 10:05 | disposition home or self-care (01) ==
LOC: ER 14:24 → CATHLAB 15:05 → ICU 15:12
PROVIDERS: ADMIT Internal Medicine Adolescent Medicine; ATTEND Internal Medicine Adolescent Medicine

== ENCOUNTER → 2017-08-16 13:35 | Outpatient (CLI) | payer MEDICAID, SELFPAY | PROVIDERS: PCP Internal Medicine Adolescent Medicine; Visit Provider Internal Medicine Cardiovascular Disease | DX: I25.10 Atherosclerotic heart disease of native coronary artery without angina pectoris (principal); I11.9 Hypertensive heart disease without heart failure; I20.8 Other forms of angina pectoris; J44.9 Chronic obstructive pulmonary disease, unspecified; E78.5 Hyperlipidemia, unspecified; R06.00 Dyspnea, unspecified; F17.200 Nicotine dependence, unspecified, uncomplicated; Z99.81 Dependence on supplemental oxygen | CPT/HCPCS: 93923; 93926 ==

== ENCOUNTER 2017-09-18 20:43 | Observation (INO) ==
--- NOTE | 2017-09-18 20:58 | Emergency Department Note ---
ED Disposition Clinical Impression: Abnormal EKG Chest pain Qualifiers: Chest pain type: chest pain due to myocardial ischemia Ischemic chest pain type : stable angina pectoris Qualified Code(s): I20.8 - Other forms of angina pectoris Disposition: Admitted as Observation Condition on Discharge: Fair - Critical Care Critical Care Time: Yes (yes) Attestation: On , the high probability of a clinically significant, sudden or life threatening deterioration of the following system(s) required my full and direct attention, intervention and personal management. The time I documented below is in addition to time spent performing reported procedures but includes the following listed in this critical care notation. Total Critical Care Time: 45 Vital system(s) involved:: Circulatory Failure, Respiratory Failure My critical care processes included: Assessment & monitoring of V/S, Initial and Re-exams, Data Review/Interpretation, Coordinating Care, Medication Orders and management, Documentation Medical Decision Making - Medical Records Medical records reviewed: Yes: I reviewed the patient's medical records. - Josh Inquiry Pt receiving controlled substance: No (Not indicated) Josh was queried for this patient: No Vital Signs: 09/18/17 20:44 09/18/17 20:54 09/18/17 20:58 Temperature 98.0 F Temperature Source Oral Pulse Rate [Right Brachial] 92 H 88 97 H Respiratory Rate 14 20 14 Blood Pressure [Right Arm] 133/76 125/88 124/78 Blood Pressure Mean [Right Arm] 95 100 93 Blood Pressure Source [Right Arm] Automatic Cuff Blood Pressure Position [Right Arm] Sitting 02 Sat by Pulse Oximetry 99 99 97 Oxygen Delivery Method Room Air Room Air Room Air 09/18/17 21:06 09/18/17 21:53 Temperature Temperature Source Pulse Rate [Right Brachial] 83 78 Respiratory Rate 16 14 Blood Pressure [Right Arm] 150/65 125/78 Blood Pressure Mean [Right Arm] 93 93 Blood Pressure Source [Right Arm] Blood Pressure Position [Right Arm] 02 Sat by Pulse Oximetry 97 97 Oxygen Delivery Method Room Air Room Air - Lab Data Lab Results 09/18/17 20:50: WBC 12.9 H, RBC 4.35, Hgb 13.2, Hct 42.1, MCV 96.8, MCH 30.3, MCHC 31.3 L, RDW 15.2, Plt Count 376, MPV 8.1, Neut % (Auto) 70.3, Lymph % (Auto ) 23.2, [place] % (Auto) 4.9, Eos % (Auto) 1.0, Baso % (Auto) 0.5, Neut # (Auto) 9.1 H, Lymph # (Auto) 3.0, [place] # (Auto) 0.6, Eos # (Auto) 0.1, Baso # (Auto) 0.1 09/18/17 20:50: Sodium 134 L, Potassium 3.8, Chloride 97 L, Carbon Dioxide 28, Anion Gap 12.8, BUN 10, Creatinine 1.05 H, Estimated Creat Clear 101, Estimated GFR 57 L, Est GFR ( Amer) 69, Glucose 93, Calcium 8.9, Troponin I < 0.02 Result diagrams: 09/18/17 20:50 09/18/17 20:50 Orders (Tests/Meds): ED MEDICATIONS Generic Name Dose Route Start Last Admin Trade Name Freq PRN Reason Stop Dose Admin Nitroglycerin 0.4 mg 09/18/17 20:56 09/18/17 20:56 Nitrostat 0.4mg Sl Tablet SL 10/18/17 20:55 0.4 mg Q5MINP PRN Administration Chest Pain Discontinued Medications Generic Name Dose Route Start Last Admin Trade Name Freq PRN Reason Stop Dose Admin Aspirin 243 mg 09/18/17 20:47 09/18/17 20:51 Aspirin 81mg Chewable Tablet PO 09/18/17 20:48 243 mg ONCE ONE Administration Nitroglycerin 0.4 mg 09/18/17 20:48 09/18/17 20:50 Nitrostat 0.4mg Sl Tablet SL 09/18/17 20:49 0.4 mg ONCE ONE Administration ORDERS Category Date Time Status Chest XR -- portable [XR chest portable] Stat Exams 09/18/17 20:51 Taken General Adult HPI - General Chief complaint: Chest Pain Stated complaint: Chest pain Time Seen by Provider: 09/18/17 20:50 Mode of Arrival: Ambulatory Limitations: No Limitations Description of Symptoms (Recalled from ER Triage Doc. by RN): Pt states she is chest pain, that started this morning and has gotten worse over the last hour and is now having numbness in left hand - History of Present Illness HPI narrative: As given above. Pain got worse in the ED. +dyspnea;+ hot feeling(diaphoresis). She smokes. She has 10 stents in her heart. Onset (ago): day(s) (1) Location: chest Radiation: extremity Severity scale (1-10): 7 Quality: aching, constant Consistency: intermittent Relieving factors: none Exacerbating factors: none Associated symptoms: diaphoresis, shortness of breath Treatments prior to arrival: aspirin - Related Data Home Medications Medication Instructions Recorded Confirmed aspirin 81 mg tablet,delayed 81 mg PO QDAY 04/05/17 04/14/17 release atorvastatin 80 mg tablet 80 mg PO QDAY 04/05/17 04/14/17 clonazepam 1 mg tablet 1 mg PO BID tab 04/05/17 04/14/17 fluticasone 50 mcg/actuation nasal 2 spray INTRANASAL QDAY 04/05/17 04/14/17 spray,suspension gabapentin 800 mg tablet 800 mg PO TID 04/05/17 04/14/17 mometasone-formoterol HFA 100 2 puff INHALATION TID g 04/05/17 04/14/17 mcg-5 mcg/actuation aerosol inhaler montelukast 10 mg tablet 10 mg PO QHS 04/05/17 04/14/17 nitroglycerin 0.4 mg sublingual 0.4 mg SUBLINGUAL Q5M PRN 04/05/17 04/14/17 tablet omeprazole magnesium 20 mg 40 mg PO QDAY tab 04/05/17 04/14/17 tablet,delayed release ticagrelor 90 mg tablet 90 mg PO BID 04/05/17 04/14/17 tiotropium bromide 2.5 2 puff INHALATION QDAY 04/05/17 04/14/17 mcg/actuation mist for inhalation trazodone 100 mg tablet 50 mg PO QHS 04/05/17 04/14/17 Benzonatate [Tessalon Perle 100mg 100 mg PO TID 04/14/17 04/14/17 Cap] cetirizine 10 mg tablet 10 mg PO 30 Days tab 04/23/17 lidocaine-prilocaine 2.5 %-2.5 % 2.5 g TOPICAL 7 Days #120 g 04/23/17 topical cream tiotropium bromide 1.25 INHALATION 30 Days #4 04/23/17 mcg/actuation mist for inhalation urea 20 % topical cream TOPICAL 14 Days #1 04/23/17 Previous Rx's Medication Instructions Recorded Nystatin [Nystatin Susp 500,000 500,000 unit PO TIDP PRN #8 oz 04/17/17 Units/5mL Udc] bisoprolol fumarate 10 mg tablet 10 mg PO BID #180 tab 05/21/17 furosemide 40 mg tablet 40 mg PO DAILY #30 tab 07/03/17 cholecalciferol (vitamin D3) 1,000 1,000 unit PO ONCE #90 cap 07/04/17 unit capsule potassium chloride ER 20 mEq 20 meq PO DAILY #30 tab 07/04/17 tablet,extended release ranolazine ER 500 mg 500 mg PO Q12H #60 tab 07/25/17 tablet,extended release,12 hr spironolactone 25 mg tablet 50 mg PO QAM #60 tab 08/16/17 Allergies Allergy/AdvReac Type Severity Reaction Status Date / Time Sulfa (Sulfonamide Allergy Unknown Verified 07/03/17 10:15 Antibiotics) [SULFA (SULFONAMIDE ANTIBIOTICS)] [facility] History Medical History: Reports:: Chronic Obstructive Pulmonary Disease (COPD), Coronary Artery Disease, Hyperlipidemia, Hypertension Denies:: Cancer, Diabetes Mellitus Type 1, Diabetes Mellitus Type 2, MRSA Other Medical History: Reports: Fibromyalgia Other Surgeries: Yes: Appendectomy, CABG, Cancer Surgery, Cardiac Catheterization, Coronary Stent, Hysterectomy-Total, Hysterectomy-Partial, Other Amputation: No Fractures: No - Social History Smoking Status: Current every day smoker Tobacco Type: cigarettes # Packs/Day (cigarettes): 1 Alcohol Intake: never Alcohol Intake Frequency:: 0-2 drinks per day Substance Use Type: denies use Occupational Status: disabled - Psychiatric History Expresses thoughts of harming self/others: None Suicide Plan Description: No Plan Family Hx:: Coronary Artery Disease, Diabetes, Hypertension, Cancer ROS Obtained: Yes All systems reviewed & no additional complaints - Cardiovascular Cardiovascular: Reports chest pain, Reports chest pain at rest, Reports diaphoresis, Reports dyspnea, Reports leg edema - Respiratory Respiratory: Yes dyspnea - Neurologic Neurologic: Reports system reviewed and no additional complaints, except as docu Physical Exam - General General appearance: alert, in no apparent distress - Head Head exam: atraumatic, normocephalic, normal inspection - Eye Eye exam: Present: normal appearance, PERRL, EOMI - ENT ENT exam: Present: normal exam, normal oropharynx, mucous membranes moist, normal external ear exam - Neck Neck exam: Present: normal inspection, full ROM, trachea midline. Absent: meningismus, lymphadenopathy - Chest Chest inspection: Present: normal inspection, symmetric chest wall rise. Absent : tenderness - Respiratory Respiratory exam: Present: normal lung sounds bilaterally. Absent: respiratory distress - Cardiovascular Cardiovascular exam: Present: regular rate, normal rhythm. Absent: JVD - Abdominal Exam Abdominal exam: Present: soft, normal bowel sounds. Absent: distention, tenderness, guarding - Extremities Exam Extremities exam: Present: normal inspection, full ROM, normal capillary refill , pedal edema (trace). Absent: calf tenderness - Back Exam Back exam: Present: normal inspection. Absent: tenderness - Neurological Exam Neurological exam: Present: alert, oriented X3, CN II-XII intact - Psychiatric Psychiatric exam: Present: normal affect, normal mood - Skin Skin exam: Present: warm, dry, intact, normal color
[2017-09-18 20:59] LABS: Basophils # 0.1 K/mm3 (0-0.2); Basophils % 0.5 % (0.1-2.0); Eosinophils # 0.1 K/mm3 (0.0-0.4); Hematocrit 42.1 % (37.0-47.0); Hemoglobin 13.2 g/dL (12.2-16.2); Lymphocytes % 23.2 K/mm3 (10-50); Mean Corpuscular HGB Conc 31.3 g/dL (31.8-35.4); Mean Corpuscular Hemoglobin 30.3 pg (27.0-31.2); Mean Corpuscular Volume 96.8 fl (81-99); Mean Platelet Volume 8.1 fl (7.4-10.4); Monocytes # 0.6 K/mm3 (0.1-1.0); Monocytes % 4.9 % (1.7-9.3); Neutrophils # 9.1 K/mm3 (1.8-7.8); Neutrophils % 70.3 % (37.0-80.0); Platelet Count 376 K/mm3 (142-424); Red Blood Count 4.35 M/mm3 (4.20-5.40); Red Cell Distribution Width 15.2 % (11.5-17.5); White Blood Count 12.9 K/mm3 (4.8-10.8)
[2017-09-18 21:18] LABS: Anion Gap 12.8 mEq/L (5-15); Blood Urea Nitrogen 10 mg/dL (7-18); Calcium 8.9 mg/dL (8.5-10.1); Carbon Dioxide 28 mmol/L (21.0-32.0); Chloride 97 mmol/L (98-107); Glucose 93 mg/dL (74-106); Potassium 3.8 mmoL/L (3.5-5.1); Sodium 134 mmol/L (136-145)
[2017-09-19 06:05] LABS: Basophils % 0.3 % (0.1-2.0); Eosinophils # 0.2 K/mm3 (0.0-0.4); Eosinophils % 1.6 % (0.1-12.0); Hematocrit 34.8 % (37.0-47.0); Lymphocytes # 2.4 K/mm3 (0.7-4.5); Lymphocytes % 26.3 K/mm3 (10-50); Mean Corpuscular HGB Conc 34.4 g/dL (31.8-35.4); Mean Corpuscular Hemoglobin 33.5 pg (27.0-31.2); Mean Corpuscular Volume 97.4 fl (81-99); Mean Platelet Volume 8.1 fl (7.4-10.4); Monocytes # 0.6 K/mm3 (0.1-1.0); Neutrophils % 65.8 % (37.0-80.0); Platelet Count 288 K/mm3 (142-424); Red Blood Count 3.58 M/mm3 (4.20-5.40); Red Cell Distribution Width 15.1 % (11.5-17.5); White Blood Count 9.2 K/mm3 (4.8-10.8)
[2017-09-19 06:15] LABS: Chol/HDL Ratio 4.3 (1-3.5)
--- NOTE | 2017-09-19 07:33 | Pharmacy Consult Notes ---
[facility] Pharmacy VTE Monitoring - Patient Demographics Admission date: 09/18/17 Report Date: 09/19/17 Time: 07:32 Allergies/Adverse Reactions: Patient Allergies Sulfa (Sulfonamide Antibiotics) [SULFA (SULFONAMIDE ANTIBIOTICS)] Allergy ( Unknown, Verified 07/03/17 10:15) Height: 1.6 m Weight: 93.1 kg Patient Problems: Current Active Problems Chest pain (Acute) Abnormal EKG (Acute) - VTE Risk Labs: VTE Related Lab Results Hgb 12.0 g/dL (12.2-16.2) L 09/19/17 05:12 Hct 34.8 % (37.0-47.0) L 09/19/17 05:12 Plt Count 288 K/mm3 (142-424) 09/19/17 05:12 BUN 10 mg/dL (7-18) 09/18/17 20:50 Creatinine 1.05 mg/dL (0.55-1.02) H 09/18/17 20:50 Estimated Creat Clear 101 mL/min (0-300) 09/18/17 20:50 Was VTE Risk Assessment Performed: Yes VTE Score: 13 VTE Risk Level: Moderate Risk - Prophylaxis VTE Prophylaxis Ordered?: Yes Types of VTE Prophylaxis: IPCS Knee High, Pharmacological Location of Applied Device: Bilateral Lower Extremeties Pharmacologic Type: Enoxaparin - VTE Diagnosis Confirmed Treatment or plan recommended: Continue Current Treatment
--- NOTE | 2017-09-19 09:55 | Consult Report ---
History of Present Illness Consult date: 09/19/17 Requesting physician: Lucio Dominguez Consult reason: chest pain Chief complaint: chest pain, stress Additional Medical History:: 1. Coronary artery disease A. Drug-eluting stent to LEFT main, December/2014 B. Drug-eluting stent to circumflex and left anterior descending, 04/2015 C. Coronary bypass grafting 3 including SWANSON to left anterior descending, SVG to the ramus and obtuse marginal arteries and a sequential fashion, 07/2015 , Dr. Tate Browning. Patient did have emergent reentry for bleeding on 1915. D. Coronary artery stenting to LEFT main and left anterior descending, 2015 E. NSTEMI, 10/2015, with subsequent LHC on 11/10/2015 showing patent Left main and LAD stents with a 70% mid vessel stenosis for which medical therapy has been recommended unless patient has recalcitrant angina. SWANSON is physiologically occluded. EF normal. F. Abnormal Lexiscan Myoview with anteroapical ischemia 05/2016 G. cardiac catheterization, 05/2016, 2 HOLLY to Proximal to mid LAD. PTCA of second diagonal and left main. Physiologically occluded SWANSON. Normal LVEF and LVEDP. H. LHC for ACS, 08/06/17, HOLLY to mid LAD for in-stent restenosis. LVEF 55% with LVEDP of 30 mm Hg. 2. Continued tobacco use 3. Hypertension 4. Hyperlipidemia 5. Severe chronic obstructive pulmonary disease, follows with Dr. Richey 6. Chronic neck pain since bypass surgery 7. History of ovarian mass for which she needs surgical intervention but due to her recurrent coronary artery disease this has not been performed at this time. Patient is high risk and will need to have this done at a tertiary care center. 8. Medication non-compliance 9. Bipolar Disorder 10. Cerebrovascular disease with severe left vertebral artery stenosis History of present illness: 42-year-old white female with known coronary artery disease and recent coronary artery stenting to the LAD presented to the emergency department last evening for chest discomfort. Patient has had some increased shortness of breath and chest discomfort over the last several days but relates associated increase stress in her life and some medication noncompliance. Patient was admitted for observation. EKG showed sinus rhythm without acute ST segment changes. Her troponins returned normal. She is feeling better today and thinks it is all related to stress. Patient is very anxious to be discharged she has a phone call later today to deal with some financial situations. Radiology consulted for evaluation and recommendations per [facility] History Medical History: Reports:: Chronic Obstructive Pulmonary Disease (COPD), Coronary Artery Disease, Hyperlipidemia, Hypertension, Myocardial Infarction Denies:: Cancer, Diabetes Mellitus Type 1, Diabetes Mellitus Type 2, MRSA Other Medical History: Reports: Arthritis, Fibromyalgia Other Surgeries: Yes: Appendectomy, CABG, Cancer Surgery, Cardiac Catheterization, Cardiac Surgery, Coronary Stent, EGD, Hysterectomy-Total, Hysterectomy-Partial, Open Heart Surgery, Other (FEET) Amputation: No Fractures: No - *Social History Educational Level: Completed High School Smoking Status: Current every day smoker Tobacco Type: cigarettes # Packs/Day (cigarettes): 1 Alcohol Intake: never Alcohol Intake Frequency:: 0-2 drinks per day Substance Use Type: denies use Occupational Status: disabled Housing: house Household Members: spouse, children - Psychiatric History Expresses thoughts of harming self/others: None Suicide Plan Description: No Plan *Family Hx:: Asthma, Cancer, Coronary Artery Disease, Diabetes, Heart Attack, Hyperlipidemia, Hypertension, Thyroid Disorder Meds Home Medications Medication Instructions Recorded Confirmed Type aspirin 81 mg tablet,delayed 81 mg PO DAILY 04/05/17 09/19/17 History release clonazepam 1 mg tablet 1 mg PO BID tab 04/05/17 09/18/17 History gabapentin 800 mg tablet 800 mg PO TID 04/05/17 09/18/17 History montelukast 10 mg tablet 10 mg PO HS 04/05/17 09/19/17 History nitroglycerin 0.4 mg sublingual 0.4 mg SUBLINGUAL Q5MINP PRN 04/05/17 09/19/17 History tablet omeprazole magnesium 20 mg 40 mg PO DAILY tab 04/05/17 09/19/17 History tablet,delayed release ticagrelor 90 mg tablet 90 mg PO BID 04/05/17 09/18/17 History cetirizine 10 mg tablet 10 mg PO DAILY 30 Days tab 04/23/17 09/18/17 History lidocaine-prilocaine 2.5 %-2.5 % 2.5 g TOPICAL DAILYP PRN 7 Days 04/23/17 History topical cream #120 g urea 20 % topical cream 1 applicatio TOPICAL DAILY 14 Days 04/23/17 09/18/17 History #1 Ranolazine [Ranexa 500mg ER tablet] 500 mg PO BID 09/18/17 09/19/17 History Trazodone HCl 50 mg PO HS 09/18/17 09/18/17 History Cholecalciferol (Vitamin D3) 1,000 unit PO DAILY 09/19/17 09/19/17 History [Vitamin D3 1,000 Unit Cap] Potassium Chloride [K-Tab ER 20 20 meq PO DAILY 09/19/17 09/19/17 History mEq] Spironolactone [Aldactone 25mg 25 mg PO BID 09/19/17 09/19/17 History Tab] Allergies Allergy/AdvReac Type Severity Reaction Status Date / Time Sulfa (Sulfonamide Allergy Unknown Verified 07/03/17 10:15 Antibiotics) [SULFA (SULFONAMIDE ANTIBIOTICS)] Review of Systems - *Cardiovascular Reports chest pain, Reports shortness of breath with activity - *Respiratory Reports chest congestion, Reports cough - *Gastrointestinal Denies abdominal pain - *Genitourinary Reports abnormal periods - *Musculoskeletal Reports joint pain Exam Vital signs and Labs for Last 24 Hours: Temp Pulse Resp BP Pulse Ox 98.4 F 72 18 116/61 95 09/19/17 07:23 09/19/17 07:23 09/19/17 07:23 09/19/17 07:23 09/19/17 07:23 Laboratory Results - last 24 hr 09/18/17 20:50: WBC 12.9 H, RBC 4.35, Hgb 13.2, Hct 42.1, MCV 96.8, MCH 30.3, MCHC 31.3 L, RDW 15.2, Plt Count 376, MPV 8.1, Neut % (Auto) 70.3, Lymph % (Auto ) 23.2, [place] % (Auto) 4.9, Eos % (Auto) 1.0, Baso % (Auto) 0.5, Neut # (Auto) 9.1 H, Lymph # (Auto) 3.0, [place] # (Auto) 0.6, Eos # (Auto) 0.1, Baso # (Auto) 0.1 09/18/17 20:50: Sodium 134 L, Potassium 3.8, Chloride 97 L, Carbon Dioxide 28, Anion Gap 12.8, BUN 10, Creatinine 1.05 H, Estimated Creat Clear 101, Estimated GFR 57 L, Est GFR ( Amer) 69, Glucose 93, Calcium 8.9, Troponin I < 0.02 09/18/17 23:50: Troponin I < 0.02 09/19/17 05:12: WBC 9.2 D, RBC 3.58 L, Hgb 12.0 L, Hct 34.8 L, MCV 97.4, MCH 33.5 H, MCHC 34.4, RDW 15.1, Plt Count 288, MPV 8.1, Neut % (Auto) 65.8, Lymph % (Auto) 26.3, [place] % (Auto) 6.0, Eos % (Auto) 1.6, Baso % (Auto) 0.3, Neut # ( Auto) 6.0, Lymph # (Auto) 2.4, [place] # (Auto) 0.6, Eos # (Auto) 0.2, Baso # (Auto ) 0.0 09/19/17 05:12: Triglycerides 142, Cholesterol 138 L, LDL Cholesterol 78, VLDL Cholesterol 28, HDL Cholesterol 32, Cholesterol/HDL Ratio 4.3 H I & O for Last 24 hours: Intake & Output 09/16/17 09/17/17 09/18/17 09/19/17 11:59 11:59 11:59 11:59 Intake Total 456 / 456 Balance 456 / 456 Weight 205 lb 4 oz - *Routine Neck Exam Absent: JVD, carotid bruit - *Routine Respiratory Exam Present: decreased breath sounds, rhonchi, wheezes - *Routine Cardiovascular Exam Present: RRR. Absent: murmur, gallop - *Routine Extremities Exam Absent: edema - *Routine Neurological Exam Present: alert, oriented X3, moving all extremities Assessment and Plan (1) Chest pain Current visit: Yes Status: Acute Qualifiers: Chest pain type: chest pain due to myocardial ischemia Ischemic chest pain type: stable angina pectoris Qualified Code(s): I20.8 - Other forms of angina pectoris Category: Medical Code(s): R07.9 - Chest pain, unspecified (2) Chronic obstructive lung disease Current visit: No Status: Acute Qualifiers: COPD type: COPD with acute exacerbation Qualified Code(s): J44.1 - Chronic obstructive pulmonary disease with (acute) exacerbation Category: Medical Code(s): J44.9 - Chronic obstructive pulmonary disease, unspecified (3) Coronary arteriosclerosis Current visit: No Status: Chronic Category: Medical Code(s): I25.10 - Atherosclerotic heart disease of [place] coronary artery without angina pectoris (4) Hyperlipidemia Current visit: No Status: Chronic Qualifiers: Hyperlipidemia type: other hyperlipidemia Qualified Code(s): E78.4 - Other hyperlipidemia Category: Medical Code(s): E78.5 - Hyperlipidemia, unspecified (5) Hypertensive heart disease Current visit: No Status: Chronic Qualifiers: Heart failure presence: without heart failure Qualified Code(s): I11.9 - Hypertensive heart disease without heart failure Category: Medical Code(s): I11.9 - Hypertensive heart disease without heart failure (6) Tobacco dependence syndrome Current visit: No Status: Chronic Category: Medical Code(s): F17.200 - Nicotine dependence, unspecified, uncomplicated - Assessment and plan all Dx Assessment and Plan for all problems:: 1. Chest pain with normal troponins and EKG without acute changes. Symptoms are not entirely similar to her previous angina symptoms and may be related to medication noncompliance in the setting of emotional distress. Patient is adamant that this is 90 related and does not wish to have any further cardiac workup at this time. Will obtain an echocardiogram to evaluate left ventricular function. Strongly encouraged her to remain compliant with her medications and keep follow-up in our office in the next couple of weeks. 2. Okay for discharge from cardiology standpoint after echocardiogram performed.
--- NOTE | 2017-09-19 10:07 | H&P/Discharge Summary ---
General - General Admission date:: 09/18/17 Discharge date: 09/19/17 *Admission Date: 09/18/17 *Chief complaint: chest pain *History of present illness: 42-year-old white female with known coronary artery disease and recent coronary artery stenting to the LAD presented to the emergency department last evening for chest discomfort. Patient has had some increased shortness of breath and chest discomfort over the last several days but relates associated increase stress in her life and some medication noncompliance. Patient was admitted for observation. EKG showed sinus rhythm without acute ST segment changes. Her troponins returned normal. She is feeling better today and thinks it is all related to stress. Patient is very anxious to be discharged she has a phone call later today to deal with some financial situations. Above per [facility]. Patient further reports increased cough with purulent sputum production. No fevers. No ENT symptoms [facility] History I have reviewed the patient's past medical history: Yes Medical History: Reports:: Chronic Obstructive Pulmonary Disease (COPD), Coronary Artery Disease, Hyperlipidemia, Hypertension, Myocardial Infarction Denies:: Cancer, Diabetes Mellitus Type 1, Diabetes Mellitus Type 2, MRSA Other Medical History: Reports: Arthritis, Fibromyalgia Other Surgeries: Yes: Appendectomy, CABG, Cancer Surgery, Cardiac Catheterization, Cardiac Surgery, Coronary Stent, EGD, Hysterectomy-Total, Hysterectomy-Partial, Open Heart Surgery, Other (FEET) Amputation: No Fractures: No - *Social History Educational Level: Completed High School Smoking Status: Current every day smoker Tobacco Type: cigarettes # Packs/Day (cigarettes): 1 Alcohol Intake: never Alcohol Intake Frequency:: 0-2 drinks per day Substance Use Type: denies use Occupational Status: disabled Housing: house Household Members: spouse, children - Psychiatric History Expresses thoughts of harming self/others: None Suicide Plan Description: No Plan *Family Hx:: Asthma, Cancer, Coronary Artery Disease, Diabetes, Heart Attack, Hyperlipidemia, Hypertension, Thyroid Disorder Review of Systems - Review of Systems Review of systems:: pertinent systems reviewed and negative unless documented below - *Cardiovascular Reports chest pain, Reports shortness of breath - *Respiratory Reports change in phlegm color, Reports chest congestion, Reports cough Exam Vital signs and Labs for Last 24 Hours: Temp Pulse Resp BP Pulse Ox 98.4 F 72 18 116/61 95 09/19/17 07:23 09/19/17 07:23 09/19/17 07:23 09/19/17 07:23 09/19/17 07:23 Laboratory Results - last 24 hr 09/18/17 20:50: WBC 12.9 H, RBC 4.35, Hgb 13.2, Hct 42.1, MCV 96.8, MCH 30.3, MCHC 31.3 L, RDW 15.2, Plt Count 376, MPV 8.1, Neut % (Auto) 70.3, Lymph % (Auto ) 23.2, [place] % (Auto) 4.9, Eos % (Auto) 1.0, Baso % (Auto) 0.5, Neut # (Auto) 9.1 H, Lymph # (Auto) 3.0, [place] # (Auto) 0.6, Eos # (Auto) 0.1, Baso # (Auto) 0.1 09/18/17 20:50: Sodium 134 L, Potassium 3.8, Chloride 97 L, Carbon Dioxide 28, Anion Gap 12.8, BUN 10, Creatinine 1.05 H, Estimated Creat Clear 101, Estimated GFR 57 L, Est GFR ( Amer) 69, Glucose 93, Calcium 8.9, Troponin I < 0.02 09/18/17 23:50: Troponin I < 0.02 09/19/17 05:12: WBC 9.2 D, RBC 3.58 L, Hgb 12.0 L, Hct 34.8 L, MCV 97.4, MCH 33.5 H, MCHC 34.4, RDW 15.1, Plt Count 288, MPV 8.1, Neut % (Auto) 65.8, Lymph % (Auto) 26.3, [place] % (Auto) 6.0, Eos % (Auto) 1.6, Baso % (Auto) 0.3, Neut # ( Auto) 6.0, Lymph # (Auto) 2.4, [place] # (Auto) 0.6, Eos # (Auto) 0.2, Baso # (Auto ) 0.0 09/19/17 05:12: Triglycerides 142, Cholesterol 138 L, LDL Cholesterol 78, VLDL Cholesterol 28, HDL Cholesterol 32, Cholesterol/HDL Ratio 4.3 H I & O for Last 24 hours: Intake & Output 09/16/17 09/17/17 09/18/17 09/19/17 11:59 11:59 11:59 11:59 Intake Total 456 / 456 Balance 456 / 456 Weight 205 lb 4 oz Narrative: Alert and oriented x3. Rate rhythm regular. No LE edema. Pulses 2+ bilaterally. Scattered rhonchi and wheezes throughout all lung scott. Bilateral sternal border tenderness. Poor dentition, mucous membranes moist. Abdomen soft and nontender. Neuro assess unremarkable. Skin, pink warm and dry. No rashes Hospital Course Hospital Course: Patient was admitted for observation. Serial enzymes were obtained and found to be normal. Cardiology was consulted who does not recommend any medications changes and clears for discharge home after completion of Echo. Discharge home on prednisone and Levaquin for COPD exac and costochondritis. Warm compressed to anterior chest TID. FU in office with myself in 1 week. FU with Cardiology in 2-3 weeks. Results Labs on day of discharge: Labs from last 24 hours 09/19/17 09/19/17 09/18/17 05:12 05:12 23:50 WBC 9.2 D RBC 3.58 L Hgb 12.0 L Hct 34.8 L MCV 97.4 MCH 33.5 H MCHC 34.4 RDW 15.1 Plt Count 288 MPV 8.1 Neut % (Auto) 65.8 Lymph % (Auto) 26.3 [place] % (Auto) 6.0 Eos % (Auto) 1.6 Baso % (Auto) 0.3 Neut # (Auto) 6.0 Lymph # (Auto) 2.4 [place] # (Auto) 0.6 Eos # (Auto) 0.2 Baso # (Auto) 0.0 Sodium Potassium Chloride Carbon Dioxide Anion Gap BUN Creatinine Estimated Creat Clear Estimated GFR Est GFR ( Amer) Glucose Calcium Troponin I < 0.02 Triglycerides 142 Cholesterol 138 L LDL Cholesterol 78 VLDL Cholesterol 28 HDL Cholesterol 32 Cholesterol/HDL Ratio 4.3 H 09/18/17 09/18/17 20:50 20:50 WBC 12.9 H RBC 4.35 Hgb 13.2 Hct 42.1 MCV 96.8 MCH 30.3 MCHC 31.3 L RDW 15.2 Plt Count 376 MPV 8.1 Neut % (Auto) 70.3 Lymph % (Auto) 23.2 [place] % (Auto) 4.9 Eos % (Auto) 1.0 Baso % (Auto) 0.5 Neut # (Auto) 9.1 H Lymph # (Auto) 3.0 [place] # (Auto) 0.6 Eos # (Auto) 0.1 Baso # (Auto) 0.1 Sodium 134 L Potassium 3.8 Chloride 97 L Carbon Dioxide 28 Anion Gap 12.8 BUN 10 Creatinine 1.05 H Estimated Creat Clear 101 Estimated GFR 57 L Est GFR ( Amer) 69 Glucose 93 Calcium 8.9 Troponin I < 0.02 Triglycerides Cholesterol LDL Cholesterol VLDL Cholesterol HDL Cholesterol Cholesterol/HDL Ratio DS: Diagnosis - Discharge Diagnosis (1) Chest pain Status: Acute (2) Chronic obstructive lung disease Status: Acute (3) Coronary arteriosclerosis Status: Chronic (4) Hyperlipidemia Status: Chronic (5) Hypertensive heart disease Status: Chronic (6) Tobacco dependence syndrome Status: Chronic (7) Costochondral chest pain Status: Acute (8) COPD exacerbation Status: Acute (9) Bronchitis Status: Acute Discharge Medications Discharge Medications: Home Medications Medication Instructions Recorded Confirmed Type aspirin 81 mg tablet,delayed 81 mg PO DAILY 04/05/17 09/19/17 History release clonazepam 1 mg tablet 1 mg PO BID tab 04/05/17 09/18/17 History gabapentin 800 mg tablet 800 mg PO TID 04/05/17 09/18/17 History montelukast 10 mg tablet 10 mg PO HS 04/05/17 09/19/17 History nitroglycerin 0.4 mg sublingual 0.4 mg SUBLINGUAL Q5MINP PRN 04/05/17 09/19/17 History tablet omeprazole magnesium 20 mg 40 mg PO DAILY tab 04/05/17 09/19/17 History tablet,delayed release ticagrelor 90 mg tablet 90 mg PO BID 04/05/17 09/18/17 History cetirizine 10 mg tablet 10 mg PO DAILYP PRN 30 Days tab 04/23/17 09/19/17 History urea 20 % topical cream 1 applicatio TOPICAL BID 14 Days #1 04/23/17 09/19/17 History Ranolazine [Ranexa 500mg ER tablet] 500 mg PO BID 09/18/17 09/19/17 History Trazodone HCl 50 mg PO HS 09/18/17 09/18/17 History Atorvastatin Calcium [Atorvastatin 80 mg PO DAILY 09/19/17 09/19/17 History 80mg Tab] Cholecalciferol (Vitamin D3) 1,000 unit PO DAILY 09/19/17 09/19/17 History [Vitamin D3 1,000 Unit Cap] Duloxetine HCl [Cymbalta] 60 mg PO DAILY 09/19/17 09/19/17 History Isosorbide Mononitrate [Imdur 60mg 60 mg PO DAILY 09/19/17 09/19/17 History ER tablet] Potassium Chloride [K-Tab ER 20 20 meq PO DAILY 09/19/17 09/19/17 History mEq] Spironolactone [Aldactone 25mg 25 mg PO BID 09/19/17 09/19/17 History Tab] Disposition Disposition: Home, Self-Care
--- NOTE | 2017-09-19 15:32 | Cardiology Report ---
PROCEDURE: 2-D M-mode and color Doppler study INDICATIONS FOR THE TEST: Chest pain X COPD Heart Murmur Tobacco SmokingX Palpitations Fatigue Syncope EdemaX HypertensionXDiabetes Mellitus Rheumatic Fever SOBXDOE Obesity Hyperlipidemia Family History HD Additional History CAD,STENTS,CABG PATIENT INFORMATION HEIGHT: 63 WEIGHT:208 GENDER: Female B/P:133/76 2-D/M-MODE INTERPRETATION: 2-D MEASUREMENTS OBSERVED VALUES IN CMS Right Ventricular Dimension (RVDd) 2.9 Interventricular Septum (Thickness)(IVsd) .8 Left Ventricular Internal Dimensions(LVIDd) 5.2 Left Ventricular Posterior Wall (Thickness)(LVPWd) 1.0 Aortic Root 3.3 Aortic Cusp Separation 1.8 Left Atrial Dimensions (LAD) 2.9 2D 1. Left atrium is normal size, left ventricle is normal size, there is no concentric left ventricular hypertrophy, visually estimated ejection fraction 55% with no obvious regional wall motion abnormality. 2. The right atrium is normal size, right ventricle is mildly enlarged with normal contractility. 3. The aortic valve is minimally thickened and fibrosed. 4. The mitral and tricuspid valve leaflets are minimally thickened. 5. The pulmonic valve is poorly. 6. No significant pericardial effusion noted. DOPPLER INTERROGATION: Doppler interrogation of the aortic, mitral and tricuspid valvular presence of mild aortic, mild mitral and tricuspid regurgitation, tricuspid and jet velocity is insufficient for calculation of the right ventricular systolic pressure, diastolic parameters are within normal range. CONCLUSION: 1. Normal left ventricular size, preserved left ventricular systolic function, visually estimated ejection fraction 55% with no obvious regional wall motion abnormality, diastolic parameters are within normal range. 2. Mildly enlarged right ventricle with normal contractility. 3. Mild aortic, mild mitral and tricuspid regurgitation. 4. No significant pericardial effusion noted.
== END 2017-09-19 11:25 | disposition home or self-care (01) ==
LOC: 2ND 20:43 → ER 20:43 → 2ND 22:40
PROVIDERS: ADMIT Internal Medicine Adolescent Medicine; ATTEND Internal Medicine Adolescent Medicine

== ENCOUNTER → 2017-10-28 08:49 | Outpatient (CLI) | payer MEDICAID, SELFPAY ==
--- NOTE | 2017-10-28 08:54 | FL_ITS ---
FL upper GI small bowel HISTORY: Dysphagia, abdominal pain, abdominal fullness ITS.REASON: dyspnea ORDERING PHYSICIAN: Pa Sandoval MD PATIENT AGE: 42 years FINDINGS: The esophagus, stomach, and duodenum have an unremarkable appearance. There is no evidence of hiatal hernia. No ulcer or mass evident. No mucosal abnormalities apparent. There is normal peristalsis. The duodenal C-loop is nondisplaced. The small bowel has an unremarkable appearance. No dilatation, mucosal boundaries, or mass is evident. FLUOROSCOPY TIME : 4 minutes and 50 seconds. IMPRESSION: Negative upper GI Unremarkable small bowel series
--- NOTE | 2017-10-28 08:54 | US_ITS ---
US thyroid HISTORY: ITS.REASON: Dyspnea ORDERING PHYSICIAN: Pa Sandoval MD PATIENT AGE: 42 years Comparison: None FINDINGS: The right lobe of the thyroid measures 4.2 x 1.8 x 2.5 cm. A 3 mm cyst is present in the mid polar region. A 4 mm cyst is present in the lower pole. The left lobe is 4.3 x 1.4 x 2.6 cm. A 4 mm hypoechoic nodules present in the lower pole. IMPRESSION: Mildly enlarged thyroid gland with small right-sided cysts and benign-appearing hypoechoic nodule on the left
== END ==
PROVIDERS: PCP Internal Medicine Adolescent Medicine; Visit Provider Surgery
DX: R13.12 Dysphagia, oropharyngeal phase (principal)
CPT/HCPCS: 74245; 76536

== ENCOUNTER 2017-11-11 09:46 | Outpatient (RCR) | payer MEDICAID, SELFPAY ==
--- NOTE | 2017-11-11 12:37 | HMH.SLDYSPHA ---
Speech & Language Evaluation Speech/Language Dysphagia Evaluation Start: 11/11/17 10:45 Freq: ONCE Status: Active Protocol: Document 11/11/17 10:45 NUZHAT (Rec: 11/11/17 11:00 NUZHAT [id number]) Dysphagia Assess/Goals/Plan Assessment Date of Evaluation: 11/11/17 Evaluation Type Initial Certification Assessment/Problems Dysphagia Does Patient Qualify for Service Yes Qualify/Failure Comment Patient complained of something is stuck and pain after swallowing Recommendations PHYSICIAN CERTIFICATION: The specified therapy services are required, authorized, and reviewed every 30 days. Pt will be seen # times/week 1 for # weeks 4 Diet Recommendations Normal Liquid Type Recommendations Normal/Thin SL Swallow Guidelines Crush meds as allowed* Dysphagia Swallow Precautions/Strategies Small Bites and Sips Alternate Liquids/Solids Additional Consults Recommended Other Comment Modified Barium Swallow Plan Anticipate reaching STG in # weeks 4 Anticipate reaching LTG in # weeks 4 Pt/Guardian verbally ack understanding Yes of dx/prognosis/goals G -code Required No STG-Other Comment/Non-Specific Patient will complete modified barium swallow to determine cause of dysphagia and for future goals. Multimedia Manager Goals Diet regular with Liquids Thin Liquids Speech & Language HPI Language Primary Language [place] General Information General Current Food Consistancy Regular Thin Liquids Denture Type Partial- Upper Facial Symmetry Symmetrical Patient Orientation Person Place Time Situation Ability to Follow Directions Excellent Oral Expression Ability No Impairment Voice Voice Quality Hoarse Voice Pitch Mildly Low Voice Loudness Moderately Soft/Quiet Dysphagia:Food Presentation Evaluation Food Type Pureed Chopped Regular Liquid Pudding Other Dysphagia Evaluation Summary Patient was given the following consistencies: thins via straw and open cup, pudding, pureed, mechanical
== END 2017-11-11 09:47 | disposition home or self-care (01) ==
LOC: ST 09:46
PROVIDERS: PCP Internal Medicine Adolescent Medicine; Visit Provider Surgery
DX: R09.89 Other specified symptoms and signs involving the circulatory and respiratory systems (principal); R11.10 Vomiting, unspecified
CPT/HCPCS: 92610

== ENCOUNTER → 2017-11-13 12:58 | Outpatient (CLI) | payer MEDICAID, SELFPAY ==
--- NOTE | 2017-11-13 13:00 | FL_ITS ---
FL barium swallow modified: 11/13/2017 1:00 PM CLINICAL HISTORY: Dysphasia ORDERING PHYSICIAN: Pa Sandoval MD PATIENT AGE: 42 years Comparison: None TECHNIQUE: Patient administered varying consistencies of barium contrast, while viewed in lateral position under real-time fluoroscopy with cine recording. FLUOROSCOPY TIME: 3 minutes and 55 seconds The study was performed in conjunction with speech pathologist. Please see that report & recommendations. FINDINGS: Patient was given varying consistencies of barium. There was mild residue within the vallecula. No aspiration or penetration. IMPRESSION: Vallecular stasis otherwise negative Please see speech pathologist report and recommendations.
--- NOTE | 2017-11-13 14:02 | HMH.SLMBS2 ---
Speech & Language Evaluation Speech/Language Mod Barium Swallow Start: 11/13/17 13:43 Freq: once Status: Complete Protocol: Document 11/13/17 13:43 NUZHAT (Rec: 11/13/17 14:02 NUZHAT [id number]) [facility] – [place], [place] Recommendations Diet Dietary Recommendations Regular Thin Liquids Treatment/Strategies Strategy/Precaution Recommend Double Swallow Referrals/Other Recommended Referrals ENT Consult Mod Barium Swallow Impressions Summary and Impressions Oral Phase Impression Minimal Impairment Oral Phase Summary Ms. Palmer was given the following consistencies: thins via straw and open cup, pudding, pureed, mechanical soft, regular, mixed, and pill with thin wash. Decreased mastication noted due to poor dentition. Pharyngeal Phase Impression Minimal Impairment Pharyngeal Phase Summary Minimal vallecular residue noted with all consistencies. Residue cleared with double swallow. Speech/Language MBS Assessment/Goals/Plan Assessment Date of Evaluation: 11/13/17 Evaluation Type Re-Evaluation/Revise POC Assessment/Problems Ms. Palmer reported difficulty swallowing with all consistencies. She reported that food hangs in her throat. She reports multiple intubations and attempted to remove herself. Does Patient Qualify for Service No Qualify/Failure Comment Minimal residue noted in valleculae cleared with double swallow. Plan Pt/Guardian verbally ack understanding Yes of dx/prognosis/goals G -code Required No Mod Barium Swallow Setup Exam Setup Radiologist Wesley Doshi Level of Consciousness Awake Appropriate Position (degrees) 90 Mod Barium Swallow-Lat View Textures Lateral View Food Presentation Thin Liquid via Cup Thin Liquid via Straw Ground Food- Regular Barium Tablet Regular Food Pudding Mixed Oral Phase Labial Closure No Impairment (WFL) Bolus Formation Pooling L/R No Impairment (WFL) Bolus Formation under Tongue No Impairment (WFL) Bolus Formation Scattered L
== END ==
PROVIDERS: PCP Internal Medicine Adolescent Medicine; Visit Provider Surgery
DX: R13.10 Dysphagia, unspecified (principal)
CPT/HCPCS: 70371; 92611

== ENCOUNTER → 2018-01-01 10:10 | Outpatient (CLI) | payer MEDICAID, SELFPAY ==
[2018-01-01 12:02] LABS: Free T4 (Free Thyroxine) 1.02 ng/dl (0.76-1.46); Thyroid Stimulating Hormone 1.64 uIU/ml (0.358-3.740)
== END ==
PROVIDERS: PCP Internal Medicine Adolescent Medicine; Visit Provider Otolaryngology
DX: E01.0 Iodine-deficiency related diffuse (endemic) goiter (principal)
CPT/HCPCS: 36415; 84439; 84443

== ENCOUNTER → 2018-03-03 11:24 | Outpatient (CLI) | payer MEDICAID, SELFPAY ==
[2018-03-03 11:29] LABS: Microscopic, Urine URINE MICROSCOPIC (MICROSCOPIC)
[2018-03-03 12:11] LABS: Basophils % 0.2 % (0.1-2.0); Eosinophils # 0.1 K/mm3 (0.0-0.4); Eosinophils % 0.9 % (0.1-12.0); Hemoglobin 11.1 g/dL (12.2-16.2); Lymphocytes # 1.1 K/mm3 (0.7-4.5); Lymphocytes % 13.1 % (10-50); Mean Corpuscular HGB Conc 31.9 g/dL (31.8-35.4); Mean Corpuscular Hemoglobin 32.6 pg (27.0-31.2); Mean Corpuscular Volume 102.1 fl (81-99); Mean Platelet Volume 7.8 fl (7.4-10.4); Monocytes # 0.4 K/mm3 (0.1-1.0); Neutrophils # 7.1 K/mm3 (1.8-7.8); Neutrophils % 81.9 % (37.0-80.0); Platelet Count 302 K/mm3 (142-424); Red Blood Count 3.42 M/mm3 (4.20-5.40); White Blood Count 8.7 K/mm3 (4.8-10.8)
[2018-03-03 12:13] LABS: Appearance,Urine CLEAR (Clear); Bilirubin,Urine Negative (Negative); Blood, Urine Negative (Negative); Color,Urine YELLOW (Yellow); Glucose,Urine (UA) Negative (Negative); Ketones,Urine Negative (Negative); Leukocyte Esterase,Urine Negative (Negative); Nitrate,Urine Negative (Negative); Protein,Urine Negative (Negative); Specific Gravity, Urine 1.015 (1.005-1.030); Urobilinogen,Urine 0.2 EU/dl (0.2)
[2018-03-03 12:20] LABS: Bacteria,Urine 1+ /lpf
[2018-03-03 13:22] LABS: Alanine Aminotransferase 25 U/L (12-78); Albumin Level 3.6 gm/dL (3.4-5.0); Albumin/Globulin Ratio 1.1 (1.1-1.8); Alkaline Phosphatase 109 U/L (46-116); Anion Gap 14.2 mEq/L (5-15); Aspartate Amino Transferase 11 U/L (15-37); Bilirubin,Total 0.5 mg/dL (0.2-1.0); Blood Urea Nitrogen 14 mg/dL (7-18); Calcium 8.7 mg/dL (8.5-10.1); Carbon Dioxide 30 mmol/L (21.0-32.0); Chloride 98 mmol/L (98-107); Creatinine,Serum 1.05 mg/dL (0.55-1.02); Estimated Glomerular Filt Rate 57 ml/min (>60); GFR (African American) 69 ML/MIN (>60); Globulin 3.4 gm/dl (1.3-3.2); Glucose 97 mg/dL (74-106); Potassium 4.2 mmoL/L (3.5-5.1); Sodium 138 mmol/L (136-145); Thyroid Stimulating Hormone 1.73 uIU/ml (0.358-3.740)
[2018-03-03 14:27] LABS: Amphetamine/Metha Screen,Urine Negative ng/mL (<1000); Barbiturates Screen,Urine Negative ng/mL (<200); Benzodiazepines Screen,Urine Negative ng/mL (<200); Cannabinoid Screen,Urine Negative ng/mL (<50); Cocaine Screen,Urine Negative ng/mL (<300); Methadone Screen,Urine Negative ng/mL (<300); Opiate Screen,Urine Negative ng/mL (<300); Phencyclidine Screen,Urine Negative ng/mL (<25)
== END ==
PROVIDERS: Visit Provider Internal Medicine Adolescent Medicine
DX: I25.10 Atherosclerotic heart disease of native coronary artery without angina pectoris (principal); G89.4 Chronic pain syndrome
CPT/HCPCS: 36415; 80053; 80305; 81001; 84443; 85025

== ENCOUNTER → 2018-04-08 09:13 | Outpatient (CLI) | payer MEDICAID, SELFPAY ==
[2018-04-09 10:32] LABS: Cancer Antigen (CA) 125 5.7 U/mL (0.0-38.1)
== END ==
PROVIDERS: Visit Provider Obstetrics & Gynecology
DX: R19.00 Intra-abdominal and pelvic swelling, mass and lump, unspecified site (principal)
CPT/HCPCS: 36415; 86316

== ENCOUNTER → 2018-04-11 10:39 | Outpatient (CLI) | payer MEDICAID, SELFPAY ==
--- NOTE | 2018-04-11 10:40 | US_ITS ---
US transvaginal HISTORY: ITS.REASON: PELVIC PAIN ORDERING PHYSICIAN: Blake Daigle MD PATIENT AGE: 43 years Comparison: 04/19/2015 FINDINGS: There has been a prior hysterectomy. The vaginal cuff has an unremarkable appearance. The left ovary measures 2 x 1 cm and has an unremarkable appearance. Right ovary measures 3.8 x 2.6 cm and contains a 3 cm cyst. No pelvic fluid evident IMPRESSION: Prior hysterectomy 3 cm right ovarian cyst
--- NOTE | 2018-04-11 11:23 | MM_ITS ---
MM Dig screening mamm BI w/CAD ORDERING PHYSICIAN : Blake Daigle MD PATIENT AGE: 43 years GENDER: Female COMPARISON: Previous August 2013 left mammogram only INDICATION: ITS.REASON: SCREENING TECHNIQUE: Standard CC and MLO images were obtained. R2 CAD reviewed. FINDINGS: A fairly dense breast tissue is seen at the central breast extending towards upper-outer quadrant. Mammography is of somewhat decreased sensitivity in areas of greater breast density.. No suspicious calcifications RIGHT BREAST:.. No significant new areas of concern. .. Modest Asymmetric area of density at the superior right breast appears similar to the previous previous studies. Most likely this is due focal area of fibroglandular tissue. No significant change. LEFT BREAST: Left breast breast With all images are reviewed I do not believe is been significant change but I would directed physical exam to this area I bilateral follow-up in not over one year would be encouraged and emphasized. IMPRESSION: No new areas of significant concern heterogeneous fairly dense asymmetric areas of breast tissue again noted . Mammography is somewhat limited breast this character ... Bilateral follow-up in not over one year recommended. Self breast examination encouraged. . ( if any palpable areas present or develop either breast then ultrasound may be useful compliment/augment mammography Again the Asymmetric moderately asymmetric dense areas left breast & right breast overall appears similar to previous studies with no significant new findings. BI-RADS Category: 2 Benign Finding(s) RECOMMENDED FOLLOW-UP: 1YR 1 YEAR FOLLOW-UP Follow-up in not over 12 months would be important (A letter has been sent to the patient regarding results of the study.)
== END ==
PROVIDERS: PCP Internal Medicine Adolescent Medicine; Visit Provider Obstetrics & Gynecology
DX: Z12.31 Encounter for screening mammogram for malignant neoplasm of breast (principal); R10.2 Pelvic and perineal pain
CPT/HCPCS: 76830; 77067

== ENCOUNTER → 2018-06-18 07:55 | Outpatient (CLI) | payer MEDICAID, SELFPAY ==
--- NOTE | 2018-06-18 08:07 | XR_ITS ---
XR chest 2V HISTORY: ITS.REASON: dyspnea, chest pain ORDERING PHYSICIAN: Jeremisa Christianson MD PATIENT AGE: 43 years COMPARISON: 12/10/2017 FINDINGS: Prior CABG. Normal heart size. Coronary artery stent is also noted. No evidence of CHF. The lungs are clear bilaterally. No acute bony findings. IMPRESSION: No change with no acute finding
[2018-06-18 09:50] LABS: Anion Gap 13.9 mEq/L (5-15); Blood Urea Nitrogen 10 mg/dL (7-18); Calcium 8.7 mg/dL (8.5-10.1); Carbon Dioxide 29 mmol/L (21.0-32.0); Chloride 103 mmol/L (98-107); Creatinine,Serum 0.92 mg/dL (0.55-1.02); Estimated Glomerular Filt Rate 66 ml/min (>60); Free Thyroxine Index 3.1 ug/dL (5.93-13.13); GFR (African American) 80 ML/MIN (>60); Glucose 88 mg/dL (74-106); Potassium 3.9 mmoL/L (3.5-5.1); Sodium 142 mmol/L (136-145); T4 (Thyroxine) 8.9 ug/dl (4.7-13.3); Thyroid Stimulating Hormone 1.36 uIU/ml (0.358-3.740); Triiodothryronine (T3) Uptake 35 % (31-39)
== END ==
PROVIDERS: PCP Internal Medicine Adolescent Medicine; Visit Provider Internal Medicine Cardiovascular Disease
DX: R06.02 Shortness of breath (principal); R94.31 Abnormal electrocardiogram [ECG] [EKG]; E78.49 Other hyperlipidemia; I11.9 Hypertensive heart disease without heart failure; I20.8 Other forms of angina pectoris; I25.10 Atherosclerotic heart disease of native coronary artery without angina pectoris; J44.9 Chronic obstructive pulmonary disease, unspecified; G47.9 Sleep disorder, unspecified; R06.83 Snoring; R40.0 Somnolence; F17.200 Nicotine dependence, unspecified, uncomplicated
CPT/HCPCS: 36415; 71046; 80048; 83880; 84436; 84443; 84479

== ENCOUNTER → 2018-07-01 11:22 | Outpatient (CLI) | payer MEDICAID, SELFPAY ==
--- NOTE | 2018-07-01 11:24 | CA_ITS ---
PROCEDURE: 2-D M-mode and color Doppler study INDICATIONS FOR THE TEST: Chest painX COPDX Heart Murmur Tobacco SmokingX Palpitations Fatigue Syncope Edema HypertensionXDiabetes Mellitus Rheumatic Fever SOBXDOE ObesityXHyperlipidemiaX Family History HD Additional History CAD,CABG,ABN EKG PATIENT INFORMATION HEIGHT: 63 WEIGHT:206 GENDER: Female B/P:117/73 2-D/M-MODE INTERPRETATION: 2-D MEASUREMENTS OBSERVED VALUES IN CMS Right Ventricular Dimension (RVDd) 2.6 Interventricular Septum (Thickness)(IVsd) 1.0 Left Ventricular Internal Dimensions(LVIDd) 5.3 Left Ventricular Posterior Wall (Thickness)(LVPWd) 1.1 Aortic Root 3.2 Aortic Cusp Separation 1.6 Left Atrial Dimensions (LAD) 3.1 2D 1. Left atrium is mildly enlarged, left ventricle is normal size, there is no concentric left ventricular hypertrophy, visually estimated ejection fraction of 55% with no regional wall motion abnormality. 2. The right atrium and right ventricle are normal size and contractility. 3. The aortic valve is minimally thickened and fibrosed. 4. The mitral and tricuspid valvular grossly normal. 5. The pulmonic valve is poorly visualized. 6. No significant pericardial effusion noted. DOPPLER INTERROGATION: Doppler interrogation of the aortic, mitral and tricuspid valvular presence of mild aortic, mild mitral and tricuspid regurgitation, tricuspid regurgitation jet velocity is inadequate for calculation of the right ventricular systolic pressure, diastolic parameters are within normal range. CONCLUSION: 1. Mildly enlarged left atrium, normal left ventricular size, visually estimated ejection fraction 55% with no regional wall motion abnormality, diastolic parameters are within normal range. 2. Mild aortic, mild mitral and tricuspid regurgitation 3. No significant pericardial effusion noted.
--- NOTE | 2018-07-01 13:05 | NM_ITS ---
CARDIOLITE SPECT MYOCARDIAL PERFUSION LEXISCAN, REST AND STRESS: [facility] REVIEW QGS EF AND WALL MOTION EVALUATION: QPS - PERFUSION EVALUATION HISTORY: c.p., soa DOSE: 11.37 mCi technetium 99m mibi intravenously at rest followed by 31.3 mCi technetium 99m mibi following the intravenous ministration of 0.4 mg of Lexiscan. Resting blood pressure is 131/63. Stress blood pressure 124/59 FINDINGS: Ejection fraction is calculated to be 62. Stress images reveal severely decreased activity in the anterior wall with persistent decrease in the anterior wall but improved over rest images. Gated images calculated ejection fraction of 62% with normal wall motion IMPRESSION: Large anterior wall defect consistent with previous anterior nontransmural myocardial infarction accompanied by significant reversible ischemia with normal ejection fraction normal wall motion. High risk abnormal stress test
== END ==
PROVIDERS: PCP Internal Medicine Adolescent Medicine; Visit Provider Internal Medicine Cardiovascular Disease
DX: I25.10 Atherosclerotic heart disease of native coronary artery without angina pectoris (principal); R06.02 Shortness of breath; E78.49 Other hyperlipidemia; I11.9 Hypertensive heart disease without heart failure; I20.8 Other forms of angina pectoris; J44.9 Chronic obstructive pulmonary disease, unspecified; G47.9 Sleep disorder, unspecified; R06.83 Snoring; R40.0 Somnolence; R94.31 Abnormal electrocardiogram [ECG] [EKG]; F17.200 Nicotine dependence, unspecified, uncomplicated
CPT/HCPCS: 78452; 93017; 93306; A9502; J2785

== ENCOUNTER 2018-07-14 07:44 | Day surgery (SDC) | payer MEDICAID, SELFPAY ==
[2018-07-14] VITALS (20 sets, daily range): BP systolic 103–134; BP diastolic 55–89; PULSE 58–79; RESP 16–20; TEMP 36.6; O2SAT 96–100; BMI 37.3
--- NOTE | 2018-07-14 | IR_ITS ---
CARDIAC CATHETERIZATION DATE OF CATHETERIZATION:07/14/2018 9:39 AM PROCEDURES: 1. Left heart catheterization 2. Left ventriculogram 3. Selective coronary angiogram 4. Selective engagement of the left internal mammary artery 5. Selective engagement of the saphenous vein graft to the circumflex artery INDICATION FOR TEST: 1. Coronary artery disease 2. History of coronary bypass surgery 3. Abnormal Myoview anterior ischemia Informed consent was obtained prior to the procedure. COMPLICATIONS: None ESTIMATED BLOOD LOSS: Less than 10 ml. TECHNIQUE: One percent lidocaine used to anesthetize the right groin. The right femoral artery was accessed via the Seldinger technique and a 5 Irish sheath was placed in the right femoral artery. A JL 4, JR4 catheter were used to perform left heart catheterization, left ventriculogram selective coronary angiography as well as selective engagement of the solitary vein graft and the left internal mammary artery. At the end of the procedure the patient was transferred to the postop holding area in stable condition for sheath removal ANGIOGRAPHIC RESULTS: 1. The left main artery has a stent in the ostial proximal mid and distal segment which extends into the LAD. The stent is widely patent 2. The left anterior descending artery has a stent originating off the left main artery and is widely patent in the proximal segment. Stents extend from the left main on the way to the mid LAD in a contiguous manner. Distal to the first diagonal artery the LAD is subtotally occluded 3. The circumflex artery ostially occluded 4. The right coronary artery is a dominant vessel and has a proximal 30% stenosis 5. The [place] ventriculogram reveals preserved ejection fraction of 55% with apical hypokinesis 6. The left ventricular end-diastolic pressure 25 mmHg 7. The left internal mammary artery issubtotally occluded and does not supply the LAD 8. The saphenous vein graft to the first obtuse marginal artery is widely patent IMPRESSION: 1. Subtotal occlusion of the SWAN[place] to the LAD 2. Coronary disease as described above 3. Regional wall motion abnormality concordant with the occluded mid LAD 4. Moderately elevated LVEDP PLAN: 1. Absolute tobacco cessation 2. Patient requires higher doses of diuretics. Her LVEDP is elevated which likely accounts for her symptoms 3. Medical management with aggressive risk factor modification
[2018-07-14 08:44] LABS: Basophils # 0.1 K/mm3 (0-0.2); Basophils % 0.4 % (0.1-2.0); Eosinophils # 0.2 K/mm3 (0.0-0.4); Eosinophils % 1.8 % (0.1-12.0); Hematocrit 38.1 % (37.0-47.0); Hemoglobin 12.5 g/dL (12.2-16.2); Lymphocytes # 2.3 K/mm3 (0.7-4.5); Lymphocytes % 19.3 % (10-50); Mean Corpuscular HGB Conc 32.8 g/dL (31.8-35.4); Mean Corpuscular Hemoglobin 33.2 pg (27.0-31.2); Mean Corpuscular Volume 101.4 fl (81-99); Mean Platelet Volume 7.8 fl (7.4-10.4); Monocytes # 0.7 K/mm3 (0.1-1.0); Monocytes % 5.7 % (1.7-9.3); Neutrophils # 8.7 K/mm3 (1.8-7.8); Neutrophils % 72.8 % (37.0-80.0); Platelet Count 328 K/mm3 (142-424); Red Blood Count 3.76 M/mm3 (4.20-5.40); Red Cell Distribution Width 13.3 % (11.5-17.5)
[2018-07-14 08:49] LABS: Anion Gap 13.3 mEq/L (5-15); Blood Urea Nitrogen 19 mg/dL (7-18); Calcium 8.9 mg/dL (8.5-10.1); Carbon Dioxide 29 mmol/L (21.0-32.0); Chloride 102 mmol/L (98-107); Creatinine Clearance Estimated 87 mL/min (50-200); Creatinine,Serum 1.23 mg/dL (0.55-1.02); Estimated Glomerular Filt Rate 47 ml/min (>60); GFR (African American) 57 ML/MIN (>60); Glucose 104 mg/dL (74-106); Potassium 4.3 mmoL/L (3.5-5.1); Sodium 140 mmol/L (136-145)
== END 2018-07-14 13:54 | disposition home or self-care (01) ==
LOC: CATHLAB 07:45
PROVIDERS: PCP Internal Medicine Adolescent Medicine; Visit Provider Internal Medicine
DX: I25.118 Atherosclerotic heart disease of native coronary artery with other forms of angina pectoris (principal); Z95.1 Presence of aortocoronary bypass graft; I25.729 Atherosclerosis of autologous artery coronary artery bypass graft(s) with unspecified angina pectoris; I11.9 Hypertensive heart disease without heart failure; E78.5 Hyperlipidemia, unspecified; J44.9 Chronic obstructive pulmonary disease, unspecified; I25.2 Old myocardial infarction; Z95.5 Presence of coronary angioplasty implant and graft; Z72.0 Tobacco use; Z88.2 Allergy status to sulfonamides; Z79.51 Long term (current) use of inhaled steroids; Z79.82 Long term (current) use of aspirin; Z79.899 Other long term (current) drug therapy; Z82.49 Family history of ischemic heart disease and other diseases of the circulatory system
CPT/HCPCS: 80048; 85025; 93459; 99152; C1725; C1769; C1894; J1644; Q9967

== ENCOUNTER → 2019-04-24 13:10 | Outpatient (CLI) | payer OTHER, SELFPAY ==
[2019-04-24 13:43] LABS: ABG Base Excess 2.4 mmol/L (-2.4-2.3); ABG HCO3 27.4 mmhg (22.0-26.0); ABG Oxygen Saturation 95 % (90-100); ABG PCO2 46.9 mmhg (35.0-45.0); ABG PH 7.39 mmol/L (7.35-7.45); ABG PO2 71.1 mmhg (80-100); ABG TCO2 28.9 mmhg (23-27)
[2019-04-24 13:45] LABS: Allen's Test Non Applicable; Oxygen ROOM AIR %; Source Right Brachial
[2019-04-24 14:18] LABS: Basophils % 0.4 % (0.1-2.0); Eosinophils # 0.1 K/mm3 (0.0-0.4); Hematocrit 39.1 % (37.0-47.0); Lymphocytes # 2.2 K/mm3 (0.7-4.5); Lymphocytes % 25.4 % (10-50); Mean Corpuscular HGB Conc 30.7 g/dL (31.8-35.4); Mean Corpuscular Hemoglobin 30.4 pg (27.0-31.2); Mean Platelet Volume 8.5 fl (7.4-10.4); Monocytes # 0.4 K/mm3 (0.1-1.0); Monocytes % 4.8 % (1.7-9.3); Neutrophils % 68.5 % (37.0-80.0); Platelet Count 290 K/mm3 (142-424); Red Blood Count 3.95 M/mm3 (4.20-5.40); Red Cell Distribution Width 14.8 % (11.5-17.5); White Blood Count 8.8 K/mm3 (4.8-10.8)
[2019-04-24 15:41] LABS: Alanine Aminotransferase 41 U/L (12-78); Albumin Level 3.5 gm/dL (3.4-5.0); Albumin/Globulin Ratio 1.3 (1.1-1.8); Alkaline Phosphatase 119 U/L (46-116); Aspartate Amino Transferase 20 U/L (15-37); Bilirubin,Total 0.3 mg/dL (0.2-1.0); Blood Urea Nitrogen 5 mg/dL (7-18); Calcium 8.3 mg/dL (8.5-10.1); Carbon Dioxide 29 mmol/L (21.0-32.0); Chloride 104 mmol/L (98-107); Creatinine,Serum 1.01 mg/dL (0.55-1.02); Estimated Glomerular Filt Rate 59 ml/min (>60); GFR (African American) 71 ML/MIN (>60); Globulin 2.8 gm/dl (1.3-3.2); Glucose 82 mg/dL (74-106); Sodium 141 mmol/L (136-145); Total Protein,Serum 6.3 gm/dL (6.4-8.2)
== END ==
PROVIDERS: Visit Provider Internal Medicine Adolescent Medicine
DX: J44.9 Chronic obstructive pulmonary disease, unspecified (principal); J96.11 Chronic respiratory failure with hypoxia; J96.12 Chronic respiratory failure with hypercapnia
CPT/HCPCS: 36415; 80053; 82803; 85025

== ENCOUNTER → 2019-05-13 09:55 | Outpatient (CLI) | payer OTHER, SELFPAY | PROVIDERS: PCP Internal Medicine Adolescent Medicine; Visit Provider Internal Medicine Sleep Medicine | DX: R06.02 Shortness of breath (principal); J44.1 Chronic obstructive pulmonary disease with (acute) exacerbation | CPT/HCPCS: 94060; 94618; 94726; 94729 ==

== ENCOUNTER → 2019-06-15 15:00 | Outpatient (CLI) | payer OTHER, SELFPAY ==
--- NOTE | 2019-06-15 15:04 | XR_ITS ---
PROCEDURE: XR FOOT WT BEARING LT 3V CLINICAL INDICATION: pain Prior surgery COMPARISON: FTR3 FOOT-RT-3 VIEWS from 01/22/2017 FTL3 FOOT-LT-3 VIEWS from 03/12/2017 FTR3 FOOT-RT-3 VIEWS from 03/12/2017 [id number] XR foot LT min 3V from 04/23/2017 FINDINGS: There are mild osteoarthritic changes at the 1st MTP joint with suspected prior bunionectomy. Small cerclage wire is present at the proximal aspect the proximal phalanx the great toe. There is fusion of the second PIP joint and 3rd PIP joint with angulation involving the distal aspect the proximal phalanx area of the 3rd and 4th toes. No fracture or dislocation. There is a mildly prominent posterior talar process with mild osteoarthritic changes of the adjacent calcaneus. IMPRESSION: Postsurgical changes with osteoarthritis of the 1st MTP joint Mildly prominent posterior talar process with osteoarthritic changes at the prominent posterior talar process and calcaneus Dictated by: Wesley Doshi MD 06/15/2019 15:52 Electronically signed by Wesley Doshi MD in [place] 06/15/2019 15:52
--- NOTE | 2019-06-15 15:04 | XR_ITS ---
PROCEDURE: XR FOOT WT BEARING RT 3V CLINICAL INDICATION: pain Bilateral foot pain COMPARISON: FTR3 FOOT-RT-3 VIEWS from 01/22/2017 FTL3 FOOT-LT-3 VIEWS from 03/12/2017 FTR3 FOOT-RT-3 VIEWS from 03/12/2017 [id number] XR foot LT min 3V from 04/23/2017 FINDINGS: There is mild hallux valgus with mild bunion formation not significantly changed. There is a small screw in the distal aspect of the 4th metatarsal and change. Normal alignment with no other significant anomalies evident. The joint spaces are well-preserved. No significant degenerative/arthritic changes. No erosive changes evident. Other findings:None. IMPRESSION: Overall no change with mild hallux valgus, bunion formation and a screw within the distal aspect of the 4th metatarsal Dictated by: Wesley Doshi MD 06/15/2019 15:48 Electronically signed by Wesley Doshi MD in [place] 06/15/2019 15:48
== END ==
PROVIDERS: PCP Family Medicine; Visit Provider Podiatrist
DX: M79.672 Pain in left foot (principal); M79.671 Pain in right foot
CPT/HCPCS: 73630

== ENCOUNTER → 2019-06-23 09:06 | Outpatient (POV) | payer OTHER, SELFPAY ==
[2019-06-23 09:18] VITALS: BP 135/73; PULSE 90; RESP 18; O2SAT 99; BMI 33.5
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
== END ==
PROVIDERS: PCP Family Medicine; Visit Provider Clinical Nurse Specialist Family Health
DX: M46.1 Sacroiliitis, not elsewhere classified (principal); M54.9 Dorsalgia, unspecified; M25.559 Pain in unspecified hip
CPT/HCPCS: 99202

== ENCOUNTER → 2019-07-02 14:52 | Outpatient (CLI) | payer OTHER, SELFPAY ==
--- NOTE | 2019-07-02 14:58 | XR_ITS ---
PROCEDURE: XR CHEST 2V CLINICAL HISTORY: COPD, COUGH COMPARISON: Chest from 09/06/2018 CT ANGIO CHEST from 12/28/2018 XR CHEST AP from 12/28/2018 XR CHEST 2V from 03/02/2019 FINDINGS: The cardiomediastinal silhouette and pulmonary vascularity are within normal limits. There has been prior median sternotomy. Coronary stents are noted. The lungs are clear of acute infiltrates, suspicious nodules, or pleural effusions. Linear densities consistent with discoid atelectasis or scarring are seen in the left base. No acute bony abnormalities. IMPRESSION: No acute findings. Dictated by: Clint Hodge 07/02/2019 15:24 Electronically signed by Clint Hodge in [place] 07/02/2019 15:24
== END ==
PROVIDERS: PCP Nurse Practitioner Family; Visit Provider Nurse Practitioner Family
DX: J44.1 Chronic obstructive pulmonary disease with (acute) exacerbation (principal)
CPT/HCPCS: 71046